=== PATIENT | male | born 1975 | race Caucasian/White ===

== ENCOUNTER → 2017-03-02 10:50 | Outpatient (CLI) | payer BC ==
[2016-04-28 14:48] VITALS: BMI 31.2
[~2017-03-02 10:50] MED LIST: PERCOCET 10/3251 TA1 PO
== END | disposition home or self-care (01) ==
LOC: D.OPS 10:50 → D.CT 13:00
DX: R19.00 Intra-abdominal and pelvic swelling, mass and lump, unspecified site (principal)

== ENCOUNTER 2017-12-30 11:49 | Inpatient (IN) | payer BC ==
[~2017-12-30] VITALS: Ht 182.9 cm; Wt 104.3 kg
--- NOTE | ~2017-12-30 | DS ---
PATIENT:NEENA COLLINS :71 MEDICAL RECORD: [id number] DISCHARGE SUMMARY ADMISSION DATE: 12/30/17 DISCHARGE DATE: 01/03/18 DATE OF ADMISSION: 12/30/2017 DATE OF DISCHARGE: 01/03/2018 ADMISSION DIAGNOSES: Abdominal pain, diverticulitis with microperforations. DISCHARGE DIAGNOSES: Abdominal pain, diverticulitis with microperforations. CONSULT: Elkin Hogan MD, general surgery. HOSPITAL COURSE: The patient was admitted to the Emergency Room with nausea, vomiting, diarrhea for several days, worse the prior night with a diffuse abdominal pain. CT of the abdomen and pelvis compatible with acute sigmoid diverticulitis with microperforations with recommendations for direct visualization with a colonoscopy after resolution of acute infection. The patient was started on IV Levaquin and Flagyl. Symptoms have completely resolved. He is anxious to go home. He is tolerating regular diet. PHYSICAL EXAMINATION: VITAL SIGNS ON DISCHARGE: Temperature 98.4, blood pressure is 132/79, heart rate is 62, respirations 15, O2 sats 96% room air. HEART: Regular rate and rhythm. LUNGS: Clear. ABDOMEN: Soft. Mild left lower quadrant tenderness. No rebound, no guarding, no palpable mass. EXTREMITIES: Present times 4. NEUROLOGIC: Intact. LABORATORY DATA: CBC on discharge; white count 7.7, hemoglobin 15.6, hematocrit 44 and platelets 199. DISPOSITION: The patient is discharged home in significantly improved condition. He will follow up in the clinic in 1 week. He will follow up with his in store banker. We will discuss further treatment plan at that time. MEDICATIONS: Per med rec. Please see chart for further details. TRANSINT:[id number] Voice Confirmation ID: [id number] DOCUMENT ID: [id number] ELKIN BOYER DO at 0818 CC: [id number] DICTATION DATE: 01/03/18 0816 PHONE REPRESENTATIVE: 01/03/18 1348 DIS IN 01/03/18 [place] 160970 [place] [id number]
[2017-12-30] MEDS ORDERED: PEPCID20 MG PO (11:59)
[2017-12-30 13:01] LABS: BASOPHILS 0.4 % (0-2); EOSINOPHILS 3.4 % (0-7); HEMATOCRIT 42.8 % (42.0-54.0); HEMOGLOBIN 15.4 g/dL (13.5-17.5); IMMATURE GRANULOCYTES 0.2 % (0-5); LYMPHOCYTES 23.3 % (15-50); MCH 31.4 pg (26.0-34.0); MCV 87.2 fL (80.0-100.0); MEAN PLATELET VOLUME 10.5 fL (7.4-10.4); MONOCYTES 8.1 % (2-11); NEUTROPHILS 64.6 % (40-80); PLATELET COUNT 165 10x3/uL (130-400); RBC 4.91 10x6/uL (4.20-6.10); RDW 12.9 % (11.5-14.5); WBC 11.2 10x3/uL (4.8-10.8)
[2017-12-30 13:21] LABS: ALBUMIN 3.5 g/dL (3.4-5.0); ALKALINE PHOSPHATASE 125 U/L (46-116); ALT (SGPT) 156 U/L (10-68); AMYLASE - SERUM 16 U/L (25-115); BILIRUBIN - TOTAL 1.67 mg/dL (0.2-1.3); CALC OSMOLALITY 272 mosm/kg (275-300); CALCIUM 9.3 mg/dL (8.5-10.1); CARBON DIOXIDE 26.8 mmol/L (21.0-32.0); CHLORIDE - SERUM 101 mmol/L (98-107); LIPASE 118 U/L (73-393); POTASSIUM - SERUM 3.9 mmol/L (3.5-5.1); PROTEIN - SERUM 7.8 g/dL (6.4-8.2); SODIUM 135 mmol/L (136-145); UREA NITROGEN 13 mg/dL (7-18); eGFR NON AFRICAN AMERICAN 86 mL/min (90-120)
[2017-12-30 13:22] LABS: GLUCOSE 148 mg/dL (74-106)
[2017-12-30 14:56] LABS: APPEARANCE CLEAR (CLEAR); BILIRUBIN NEGATIVE (NEGATIVE); COLOR AMBER (YELLOW); GLUCOSE NEGATIVE (NEGATIVE); KETONE NEGATIVE (NEGATIVE); NITRITE NEGATIVE (NEGATIVE); PROTEIN 1+ mg/dL (NEGATIVE); UROBILINOGEN NORMAL (NORMAL)
[2017-12-30 14:57] LABS: BACTERIA FEW /hpf (NONE SEEN); RED CELLS - URINE 0-5 /hpf (0-5); WHITE CELLS - URINE 0-5 /hpf (0-5)
[2017-12-30 14:58] LABS: MUCUS >1+ /lpf (NONE SEEN)
[2017-12-30 19:18] VITALS: BP 122/79
[2017-12-30] MEDS ORDERED: [UNRECOGNIZED DRUG - OTHER] (20:48)
[2017-12-30 23:16] VITALS: BP 139/75
[2017-12-31] VITALS (7 sets, daily range): BP systolic 105–151; BP diastolic 67–88; BMI 31.2
[2017-12-31 06:36] LABS: BASOPHILS 0.4 % (0-2); EOSINOPHILS 5.3 % (0-7); HEMATOCRIT 39.5 % (42.0-54.0); HEMOGLOBIN 13.7 g/dL (13.5-17.5); IMMATURE GRANULOCYTES 0.1 % (0-5); LYMPHOCYTES 25.5 % (15-50); MCH 30.7 pg (26.0-34.0); MCHC 34.7 g/dL (31.0-37.0); MCV 88.6 fL (80.0-100.0); MEAN PLATELET VOLUME 10.5 fL (7.4-10.4); MONOCYTES 6.8 % (2-11); NEUTROPHILS 61.9 % (40-80); PLATELET COUNT 150 10x3/uL (130-400); RBC 4.46 10x6/uL (4.20-6.10); RDW 13.1 % (11.5-14.5)
[2017-12-31 06:44] LABS: WBC 7.7 10x3/uL (4.8-10.8)
[2017-12-31 07:34] LABS: ALBUMIN 3.1 g/dL (3.4-5.0); ALKALINE PHOSPHATASE 90 U/L (46-116); BILIRUBIN - TOTAL 0.87 mg/dL (0.2-1.3); CALC OSMOLALITY 274 mosm/kg (275-300); CALCIUM 8.5 mg/dL (8.5-10.1); CARBON DIOXIDE 24.5 mmol/L (21.0-32.0); CHLORIDE - SERUM 103 mmol/L (98-107); CREATININE - SERUM 1.1 mg/dL (0.6-1.3); GLUCOSE 134 mg/dL (74-106); POTASSIUM - SERUM 4.1 mmol/L (3.5-5.1); SODIUM 136 mmol/L (136-145); UREA NITROGEN 14 mg/dL (7-18); eGFR NON AFRICAN AMERICAN 77 mL/min (90-120)
[2017-12-31 07:36] LABS: ALT (SGPT) 105 U/L (10-68)
[2018-01-01 04:32] LABS: BASOPHILS 0.5 % (0-2); EOSINOPHILS 4.9 % (0-7); HEMATOCRIT 37.9 % (42.0-54.0); HEMOGLOBIN 13.3 g/dL (13.5-17.5); IMMATURE GRANULOCYTES 0.2 % (0-5); LYMPHOCYTES 28.2 % (15-50); MCH 30.9 pg (26.0-34.0); MCHC 35.1 g/dL (31.0-37.0); MCV 88.1 fL (80.0-100.0); MEAN PLATELET VOLUME 10.6 fL (7.4-10.4); NEUTROPHILS 58.2 % (40-80); PLATELET COUNT 157 10x3/uL (130-400); RDW 12.9 % (11.5-14.5); WBC 6.1 10x3/uL (4.8-10.8)
[2018-01-01 05:20] LABS: ALKALINE PHOSPHATASE 105 U/L (46-116); ALT (SGPT) 89 U/L (10-68); BILIRUBIN - TOTAL 0.71 mg/dL (0.2-1.3); CALC OSMOLALITY 273 mosm/kg (275-300); CALCIUM 8.2 mg/dL (8.5-10.1); CARBON DIOXIDE 24.1 mmol/L (21.0-32.0); CHLORIDE - SERUM 103 mmol/L (98-107); GLUCOSE 120 mg/dL (74-106); PHOSPHOROUS 2.9 mg/dL (2.5-4.9); POTASSIUM - SERUM 3.9 mmol/L (3.5-5.1); PROTEIN - SERUM 6.8 g/dL (6.4-8.2); SODIUM 137 mmol/L (136-145); UREA NITROGEN 11 mg/dL (7-18); eGFR NON AFRICAN AMERICAN 86 mL/min (90-120)
[2018-01-01 06:10] VITALS: BP 137/83
[2018-01-01 07:46] VITALS: BP 124/79
[2018-01-01 12:45] VITALS: BP 146/82
[2018-01-01 16:29] VITALS: BP 135/70
[2018-01-01 20:03] VITALS: BP 163/96
[2018-01-02 04:00] VITALS: BP 131/67
[2018-01-02 05:09] LABS: BASOPHILS 0.3 % (0-2); EOSINOPHILS 4.9 % (0-7); HEMATOCRIT 39.9 % (42.0-54.0); HEMOGLOBIN 13.9 g/dL (13.5-17.5); IMMATURE GRANULOCYTES 0.2 % (0-5); LYMPHOCYTES 34.3 % (15-50); MCH 30.5 pg (26.0-34.0); MCHC 34.8 g/dL (31.0-37.0); MCV 87.7 fL (80.0-100.0); MEAN PLATELET VOLUME 10.4 fL (7.4-10.4); NEUTROPHILS 51.3 % (40-80); PLATELET COUNT 179 10x3/uL (130-400); RBC 4.55 10x6/uL (4.20-6.10); RDW 12.7 % (11.5-14.5)
[2018-01-02 05:27] LABS: ALBUMIN 3.2 g/dL (3.4-5.0); ALKALINE PHOSPHATASE 107 U/L (46-116); ALT (SGPT) 87 U/L (10-68); BILIRUBIN - TOTAL 0.47 mg/dL (0.2-1.3); CALC OSMOLALITY 274 mosm/kg (275-300); CALCIUM 8.3 mg/dL (8.5-10.1); CARBON DIOXIDE 24.9 mmol/L (21.0-32.0); CHLORIDE - SERUM 105 mmol/L (98-107); GLUCOSE 141 mg/dL (74-106); POTASSIUM - SERUM 3.9 mmol/L (3.5-5.1); PROTEIN - SERUM 6.7 g/dL (6.4-8.2); SODIUM 137 mmol/L (136-145); UREA NITROGEN 10 mg/dL (7-18); eGFR NON AFRICAN AMERICAN 86 mL/min (90-120)
[2018-01-02 08:29] VITALS: BP 138/77
[2018-01-02 09:57] VITALS: Ht 182.9 cm; Wt 104.3 kg
[2018-01-02 11:37] VITALS: BP 121/77
[2018-01-02 15:20] VITALS: BP 136/78
[2018-01-02 20:17] VITALS: BP 160/88
[2018-01-03 04:54] LABS: BASOPHILS 0.5 % (0-2); EOSINOPHILS 3.4 % (0-7); HEMOGLOBIN 15.6 g/dL (13.5-17.5); IMMATURE GRANULOCYTES 0.3 % (0-5); LYMPHOCYTES 32.3 % (15-50); MCH 31.1 pg (26.0-34.0); MCHC 35.5 g/dL (31.0-37.0); MCV 87.8 fL (80.0-100.0); MEAN PLATELET VOLUME 10.5 fL (7.4-10.4); MONOCYTES 6.8 % (2-11); NEUTROPHILS 56.7 % (40-80); PLATELET COUNT 199 10x3/uL (130-400); RBC 5.01 10x6/uL (4.20-6.10); RDW 12.9 % (11.5-14.5)
[2018-01-03 04:55] VITALS: BP 123/85
[2018-01-03 05:00] LABS: WBC 7.7 10x3/uL (4.8-10.8)
[2018-01-03 05:06] LABS: ALBUMIN 3.5 g/dL (3.4-5.0); ALKALINE PHOSPHATASE 125 U/L (46-116); BILIRUBIN - TOTAL 0.63 mg/dL (0.2-1.3); CALC OSMOLALITY 274 mosm/kg (275-300); CALCIUM 8.9 mg/dL (8.5-10.1); CARBON DIOXIDE 27.2 mmol/L (21.0-32.0); CHLORIDE - SERUM 101 mmol/L (98-107); CREATININE - SERUM 1.1 mg/dL (0.6-1.3); GLUCOSE 126 mg/dL (74-106); POTASSIUM - SERUM 3.7 mmol/L (3.5-5.1); PROTEIN - SERUM 7.4 g/dL (6.4-8.2); SODIUM 137 mmol/L (136-145); UREA NITROGEN 11 mg/dL (7-18); eGFR NON AFRICAN AMERICAN 77 mL/min (90-120)
[2018-01-03 05:10] LABS: ALT (SGPT) 136 U/L (10-68)
[2018-01-03 07:30] VITALS: BP 132/79
[2018-01-03] MEDS ORDERED: FLORASTOR250 MG PO (08:09)
[2018-01-03] MEDS ORDERED: FLAGYL500 MG PO (08:10)
[2018-01-03] MEDS ORDERED: LEVAQUIN750 MG PO (08:10)
== END 2018-01-03 16:02 | disposition home or self-care, planned readmission (81) | DRG 392 ==
LOC: D.ER 11:49 → D.M3 18:41 → D.EDHOLD 18:41 → D.M3 19:50
PROVIDERS: Family Medicine
DX: K57.10 Diverticulosis of small intestine without perforation or abscess without bleeding (principal); N39.0 Urinary tract infection, site not specified; R55 Syncope and collapse

== ENCOUNTER 2018-03-21 10:21 | Inpatient (IN) | payer BC ==
[2018-03-20 11:58] LABS: BASOPHILS 0.6 % (0-2); HEMATOCRIT 43.6 % (42.0-54.0); IMMATURE GRANULOCYTES 0.3 % (0-5); LYMPHOCYTES 34.3 % (15-50); MCH 31.9 pg (26.0-34.0); MCHC 36.7 g/dL (31.0-37.0); MCV 86.9 fL (80.0-100.0); MONOCYTES 7.6 % (2-11); NEUTROPHILS 52.2 % (40-80); PLATELET COUNT 188 10x3/uL (130-400); RBC 5.02 10x6/uL (4.20-6.10); RDW 12.9 % (11.5-14.5); WBC 7.2 10x3/uL (4.8-10.8)
[2018-03-20 12:09] LABS: CALC OSMOLALITY 275 mosm/kg (275-300); CALCIUM 9.5 mg/dL (8.5-10.1); CARBON DIOXIDE 23.7 mmol/L (21.0-32.0); CHLORIDE - SERUM 101 mmol/L (98-107); CREATININE - SERUM 1.1 mg/dL (0.6-1.3); GLUCOSE 134 mg/dL (74-106); SODIUM 137 mmol/L (136-145); UREA NITROGEN 13 mg/dL (7-18); eGFR NON AFRICAN AMERICAN 77 mL/min (90-120)
[~2018-03-21] VITALS: Ht 182.9 cm; Wt 84.1 kg
--- NOTE | ~2018-03-21 | MORECARE ---
CASE MANAGEMENT DISCHARGE SUMMARY PATIENT: NEENA COLLINS UNIT: [id number] ADM DATE: 03/21/18 AGE: 42 : [birth year] SEX: M ROOM/BED: D.2207 AUTHOR: JAIME ELLIOTT PHYSICIAN: REFERRING PHYSICIAN: BRENDEN MARSHALL MD DATE OF SERVICE: 03/25/18 Discharge Plan Patient Name: NEENA COLLINS Facility: [facility]:[place] : 1975 Planned Disposition: Home Anticipated Discharge Date: 03/25/18 Discharge Date: Expected LOS: 4 Initial Reviewer: [email or web address] Initial Review Date: 03/25/2018 Generated: 03/25/18 12:06 pm Comments DCP- Discharge Planning Updated by [email or web address]: Mya Hdz on 03/25/18 10:[address] Patient Name: NEENA COLLINS Admission Status: Elective Accout number: [id number] Admission Date: 03-21-2018 : 1975 Admission Diagnosis:DVTRCLI OF LG INT W/O PERFORATION OR ABSCESS W/O BLEEDI Attending: BRENDEN MARSHALL Current LOS: 4 Anticipated DC Date: 03-25-2018 Planned Disposition: Home Primary Insurance: [employer] BLUE PPO Discharge Planning Comments: CM MET WITH PATIENT REGARDING D/C NEEDS AND PLANS. PATIENT STATED HE LIVES WITH HIS (ZURI) AND THEIR CHILDREN. PATIENTS WILL DRIVE HIM HOME AT DISCHARGE. PATIENT IS SUPPOSE TO DISCHARGE TODAY. PATIENT STATED HE IS INDEPENDENT WITH HIS CARE AND HAS NO DME EQUIPMENT AT HOME. PATIENTS PCP IS DR. BOYER AND USES [facility] FOR HIS PHARMACY. PATIENT REFUSED HOME HEALTH. CM TOLD PATIENT IF THINGS CHANGE ONCE HOME AND HH NEEDED TO CALL HIS PCP. CM WILL CONTINUE TO FOLLOW PATIENT WITH D/C NEEDS AND PLANS. PCP [facility] [phone] Pants Maker: Mya Hdz DCP- Discharge Planning Updated by [email or web address]: Екатерина Solomon on 03/23/18 12:[address] PATIENT SLEEPING, WILL ASSESS AT A LATER TIME DCPIA - Discharge Planning Initial Assessment Updated by [email or web address]: Mya Hdz on 03/25/18 11:01 am * Is the patient Alert and Oriented? Yes * How many steps to enter\exit or inside your home? * PCP DR. BOYER * Pharmacy [facility] * Preadmission Environment Home with Family * ADLs Independent * Equipment None * List name and contact numbers for known caregivers / representatives who currently or will assist patient after discharge: ZURI (SPOUSE) [phone] * Verbal permission to speak to the caregivers and representatives has been obtained from the patient. Yes * Community resources currently utilized None * Additional services required to return to the preadmission environment? Yes * Can the patient safely return to the preadmission environment? Yes * Has this patient been hospitalized within the prior 30 days at any hospital? No Last DP export: 03/25/18 9:59 a Patient Name: NEENA COLLINS Page [id number] at 1106 All edits/amendments must be made on the electronic document DICTATION DATE: 03/25/181104 FORKLIFT MECHANIC: KAMALA 03/25/181104 RPT#: [id number] DC DATE: STATUS: ADM IN [facility] [address] [place] [address] END OF REPORT
--- NOTE | ~2018-03-21 | OP ---
PATIENT NAME: NEENA COLLINS MEDICAL RECORD: [id number] :71 LOCATION:D.MS Glez7 ADMISSION DATE:03/21/18 SURGEON: BRENDEN MARSHALL MD DATE OF OPERATION: 03/21/2018 PREOPERATIVE DIAGNOSIS: History of severe diverticulitis of the sigmoid colon with microperforation. POSTOPERATIVE DIAGNOSES: History of severe diverticulitis of the sigmoid colon with microperforation with extensive intra-abdominal adhesions in the pelvis. PROCEDURES: 1. Hand-assisted laparoscopic surgery - sigmoid colectomy with takedown of the splenic flexure. 2. Incidental appendectomy. SURGEON: Brenden Marshall MD PROGRAM ADMINISTRATOR: None. BLOOD LOSS: 100 cc. ANESTHESIA: General. COMPLICATIONS: None. The risks, possible complications, and alternatives to the procedures were explained to the patient. He elects to proceed. The discussion specifically included, but was not limited to, bleeding, requiring emergency reoperation; infection; colostomy formation; pelvic infection. OPERATIVE COURSE: The patient was conveyed to the operating room electively on 03/21/2018. General anesthesia was induced by the anesthesia staff. The abdomen was sterilely prepped and draped. A lower transverse incision was accomplished. Sharp dissection was carried down through skin and subcutaneous tissue as well as Rebecca's fascia. I incised the anterior fascia transversely. I the rectus abdominis muscles. I entered the peritoneal cavity sharply. An John retractor was placed. On top of the John retractor, a GelPort was placed. Through the Gelport, a 12-mm trocar was placed. Through the 12-mm trocar, I insufflated the abdomen. Under direct internal vision, utilizing television camera, a 5-mm trocar was inserted at the umbilicus. Another 5-mm trocar was inserted in the epigastrium and another 5-mm trocar was inserted far laterally in the left lower quadrant. During insertion of the trocars, there was no apparent injury to the bowels, any intraperitoneal or retroperitoneal structures. I began to incise along the left white line of Toldt. I entered the inner sigmoid fossa. Utilizing the laparoscopic EnSeal device and with my hand in the abdomen, I took down the splenic flexure of the colon. I then took the GelPort off of on top of the John retractor and desufflated the abdomen. OPERATIVE REPORT [id number] NEENA COLLINS I mobilized the appendix. The indication for the appendectomy is to avoid diagnostic confusion in the future should the patient have recurrence or persistence of abdominal pain. I stapled across the tip of the cecum with an Endo-ISIDRA type stapler utilizing a blue load. I then took down the mesoappendix with the laparoscopic EnSeal device. The appendix was sent as a single specimen. I then chose the distal extent of my resection to be what I thought was the junction of the sigmoid colon and the rectum. A window was created in the large bowel mesentery. I stapled across the large bowel twice with a TA-60 stapler and divided the large bowel between the melly. I then chose the proximal extent of my resection to be what I thought was the junction of the descending colon and the sigmoid colon. A window was created in the mesentery of the colon at this site and I stapled across it here with a TA-60 stapler. I took down the mesentery of the bowel with the laparoscopic EnSeal device. I felt the rectum and it felt thickened. Upon further mobilization and lysis of adhesions around the rectum, I noted that there was still a really inflamed portion of the large bowel and this appeared to be actually additional sigmoid colon. I was able to mobilize this. A window was created at the junction of the rectum and the sigmoid colon. I stapled across the bowel here with a TA-60 stapler and then took down the rest of the mesentery to the sigmoid colon with laparoscopic EnSeal device. I ran the small bowel. There appeared to have been no small bowel injury. I then excised the staple line from the descending colon. I advanced a 25 mm anvil and brought the anvil out through the antimesenteric border of the colon. I then stapled off the end of the colon with a TA-30 stapler. I then went below. I advanced EEA sizers. I then advanced the EEA stapling device. I deployed the arrow through the end of the staple line. I connected the anvil to the EEA stapler and tightened down on it and then fired. I then opened it up and removed the stapler. I then oversewed a portion of the staple line with multiple interrupted horizontal mattress 3-0 Vicryl sutures. We then instilled saline into the pelvis. We then tested the anastomosis pneumatically and there was no bubbling. I draped some omentum down over the anastomosis. I reperitonealized with running #1 Vicryls. The rectus muscles were approximated with horizontal mattress #1 Vicryls. The anterior fascia was closed with running #1 Vicryls from the left and from the right. Rebecca's fascia was approximated with interrupted 3-0 Vicryls. The subdermis was approximated with interrupted 3-0 Vicryls. The skin was approximated with a running intracuticular 3-0 Vicryl. At the trocar sites, the umbilical trocar site was closed with interrupted 3-0 Vicryl Rapide sutures. The other skin incisions were closed with interrupted intracuticular 3-0 Vicryls. Benzoin and Steri-Strips were applied. The patient was then extubated and conveyed to the postanesthesia care unit, where he was in stable condition. TRANSINT:[id number] Voice Confirmation ID: [id number] DOCUMENT ID: [id number] OPERATIVE REPORT [id number] NEENA COLLINS ROBERT MD at 1603 CC: BRENDEN BOYER and MAGGIE ROSS [id number] DICTATION DATE: 03/21/181834 LAST PUTTER AWAY: 03/21/181947 DIS IN 03/25/18 [place] [id number] [place] [address]
--- NOTE | ~2018-03-21 | MORECARE ---
CASE MANAGEMENT DISCHARGE SUMMARY PATIENT: NEENA COLLINS VICKIE UNIT: [id number] ADM DATE: 03/21/18 AGE: 42 : [birth year] SEX: M ROOM/BED: D.2207 AUTHOR: JAIME ELLIOTT PHYSICIAN: REFERRING PHYSICIAN: BRENDEN MARSHALL MD DATE OF SERVICE: 03/23/18 Discharge Plan Patient Name: NEENA COLLINS Facility: [facility]:[place] : 1975 Planned Disposition: Anticipated Discharge Date: Discharge Date: Expected LOS: Initial Reviewer: [email or web address] Initial Review Date: 03/21/2018 Generated: 03/23/18 1:10 pm Comments DCP- Discharge Planning Updated by [email or web address]: Екатерина Solomon on 03/23/18 11:[address] PATIENT SLEEPING, WILL ASSESS AT A LATER TIME Patient Name: NEENA COLLINS Page [phone] at 1210 All edits/amendments must be made on the electronic document DICTATION DATE: 03/23/18 1209 SQL SSRS DEVELOPER: KAMALA 03/23/18 1209 RPT#: [id number] DC DATE: STATUS: ADM IN [facility] [address] [place] [address] END OF REPORT
--- NOTE | ~2018-03-21 | MORECARE ---
CASE MANAGEMENT DISCHARGE SUMMARY PATIENT: NEENA COLLINS UNIT: [id number] ADM DATE: 03/21/18 AGE: 42 : 71 SEX: M ROOM/BED: D.2207 AUTHOR: JAIME ELLIOTT PHYSICIAN: REFERRING PHYSICIAN: BRENDEN MARSHALL MD DATE OF SERVICE: 03/27/18 Discharge Plan Patient Name: NEENA COLLINS Facility: [facility]:[place] : 1975 Planned Disposition: Home Anticipated Discharge Date: 03/25/18 Discharge Date: 03/25/2018 Expected LOS: 4 Initial Reviewer: [email or web address] Initial Review Date: 03/25/2018 Generated: 03/27/18 12:05 pm Comments DCP- Discharge Planning Updated by [email or web address]: Mya Hdz on 03/25/18 10:[address] Patient Name: NEENA COLLINS Admission Status: Elective Accout number: [id number] Admission Date: 03-21-2018 : 1975 Admission Diagnosis:DVTRCLI OF LG INT W/O PERFORATION OR ABSCESS W/O BLEEDI Attending: BRENDEN MARSHALL Current LOS: 4 Anticipated DC Date: 03-25-2018 Planned Disposition: Home Primary Insurance: [employer] BLUE PPO Discharge Planning Comments: CM MET WITH PATIENT REGARDING D/C NEEDS AND PLANS. PATIENT STATED HE LIVES WITH HIS (ZURI) AND THEIR CHILDREN. PATIENTS WILL DRIVE HIM HOME AT DISCHARGE. PATIENT IS SUPPOSE TO DISCHARGE TODAY. PATIENT STATED HE IS INDEPENDENT WITH HIS CARE AND HAS NO DME EQUIPMENT AT HOME. PATIENTS PCP IS DR. BOYER AND USES [facility] FOR HIS [facility]ACY. PATIENT REFUSED HOME HEALTH. CM TOLD PATIENT IF THINGS CHANGE ONCE HOME AND HH NEEDED TO CALL HIS PCP. CM WILL CONTINUE TO FOLLOW PATIENT WITH D/C NEEDS AND PLANS. PCP [facility] [phone] Lapping Machine Tender: Mya Hdz DCP- Discharge Planning Updated by [email or web address]: Екатерина Solomon on 03/23/18 12:[address] PATIENT SLEEPING, WILL ASSESS AT A LATER TIME DCPIA - Discharge Planning Initial Assessment Updated by [email or web address]: Mya Hdz on 03/25/18 11:01 am * Is the patient Alert and Oriented? Yes * How many steps to enter\exit or inside your home? * PCP DR. BOYER * Pharmacy [facility] * Preadmission Environment Home with Family * ADLs Independent * Equipment None * List name and contact numbers for known caregivers / representatives who currently or will assist patient after discharge: ZURI (SPOUSE) [phone] * Verbal permission to speak to the caregivers and representatives has been obtained from the patient. Yes * Community resources currently utilized None * Additional services required to return to the preadmission environment? Yes * Can the patient safely return to the preadmission environment? Yes * Has this patient been hospitalized within the prior 30 days at any hospital? No Last DP export: 03/25/18 10:06 a Patient Name: NEENA COLLINS Page 77799 at 1105 All edits/amendments must be made on the electronic document DICTATION DATE: 03/27/18 110 MOGUL OPERATOR: KAMALA 03/27/18 1104 RPT#: [id number] DC DATE:03/25/18 STATUS: DIS IN [facility] [address] [place] [address] END OF REPORT
--- NOTE | ~2018-03-21 | MORECARE ---
CASE MANAGEMENT DISCHARGE SUMMARY PATIENT: NEENA COLLINS VICKIE UNIT: [id number] ADM DATE: 03/21/18 AGE: 42 : 71 SEX: M ROOM/BED: D.2207 AUTHOR: JAIME ELLIOTT PHYSICIAN: REFERRING PHYSICIAN: BRENDEN MARSHALL MD DATE OF SERVICE: 03/25/18 Discharge Plan Patient Name: NEENA COLLINS [facility] [facility] 1975 Planned Disposition: Home Anticipated Discharge Date: 03/25/18 Discharge Date: Expected LOS: 4 Initial Reviewer: [email or web address] Initial Review Date: 03/25/2018 Generated: 03/25/18 11:59 am Comments DCP- Discharge Planning Updated by [id number]: Екатерина Solomon on 03/23/18 12:[address] PATIENT SLEEPING, WILL ASSESS AT A LATER TIME Last DP export: 03/23/18 12:10 p Patient Name: NEENA COLLINS Page [phone] at 1059 All edits/amendments must be made on the electronic document DICTATION DATE: 03/25/18 1059 CRESTER: KAMALA 03/25/18 1059 RPT#: [id number] DC DATE: STATUS: ADM IN [facility] [address] [place] [address] END OF REPORT
[~2018-03-21 10:21] MED LIST changes: +FLAGYL500 MG PO; +FLORASTOR250 MG PO; +LEVAQUIN750 MG PO; +PEPCID20 MG PO; +[UNRECOGNIZED DRUG - OTHER]
[2018-03-21 11:58] VITALS: BP 131/83; BMI 31.8
[2018-03-22 04:55] VITALS: BP 123/78; Ht 182.9 cm; Wt 84.1 kg
[2018-03-22 04:58] VITALS: BP 123/78
[2018-03-22 11:00] VITALS: BP 104/65
[2018-03-22 16:33] VITALS: BP 116/72
[2018-03-22 21:26] VITALS: BP 124/59
[2018-03-23 05:11] VITALS: BP 148/94
[2018-03-23 08:23] VITALS: BP 150/92
[2018-03-23 09:50] LABS: BASOPHILS 0.4 % (0-2); EOSINOPHILS 1.4 % (0-7); HEMOGLOBIN 12.6 g/dL (13.5-17.5); IMMATURE GRANULOCYTES 0.2 % (0-5); LYMPHOCYTES 16.3 % (15-50); MCH 31.4 pg (26.0-34.0); MCV 89.8 fL (80.0-100.0); MEAN PLATELET VOLUME 9.8 fL (7.4-10.4); NEUTROPHILS 75.7 % (40-80); RBC 4.01 10x6/uL (4.20-6.10); RDW 13.1 % (11.5-14.5); WBC 8.6 10x3/uL (4.8-10.8)
[2018-03-23 09:51] LABS: PLATELET COUNT 133 10x3/uL (130-400)
[2018-03-23 10:01] LABS: CALC OSMOLALITY 273 mosm/kg (275-300); CALCIUM 8.1 mg/dL (8.5-10.1); CHLORIDE - SERUM 101 mmol/L (98-107); CREATININE - SERUM 0.9 mg/dL (0.6-1.3); POTASSIUM - SERUM 3.7 mmol/L (3.5-5.1); SODIUM 134 mmol/L (136-145); UREA NITROGEN 10 mg/dL (7-18); eGFR NON AFRICAN AMERICAN > 90 mL/min (90-120)
[2018-03-23 10:06] LABS: GLUCOSE 219 mg/dL (74-106)
[2018-03-23 16:23] VITALS: BP 135/93
[2018-03-23 21:18] VITALS: BP 122/86
[2018-03-24 04:29] VITALS: BP 127/76
[2018-03-24 09:17] VITALS: BP 122/79
[2018-03-24 12:43] VITALS: BP 129/78
[2018-03-24 17:00] VITALS: BP 148/97
[2018-03-25 00:44] VITALS: BP 138/81
[2018-03-25 04:00] VITALS: BP 113/80
[2018-03-25 08:17] VITALS: BP 125/88
[2018-03-25] MEDS ORDERED: HYDROCODON-ACE1 EAC7 PO (11:15)
[2018-03-25 11:56] VITALS: BP 139/88
== END 2018-03-25 13:00 | disposition home or self-care (01) | DRG 331 ==
LOC: D.MS 10:21 → D.SDCHOLD 10:21 → D.MS 19:13
PROVIDERS: Anesthesiology; Surgery
PROC: 0DTJ0ZZ Resection of Appendix, Open Approach (ICD-10-PCS; 2018-03-21)
PROC: 0DTN0ZZ Resection of Sigmoid Colon, Open Approach (ICD-10-PCS; principal; 2018-03-21 12:30)
PROC: 0DNW0ZZ Release Peritoneum, Open Approach (ICD-10-PCS; 2018-03-21 12:30)
DX: K57.32 Diverticulitis of large intestine without perforation or abscess without bleeding (principal); K66.0 Peritoneal adhesions (postprocedural) (postinfection)

== ENCOUNTER → 2018-03-28 11:16 | Outpatient (CLI) | payer BC ==
[2018-03-22 04:55] VITALS: BMI 25.1
[~2018-03-28 11:16] MED LIST changes: +DIFICID 200 MG PO; +HYDROCODON-ACE1 EAC7 PO; +KENALOG 0.1 % 115 GM TOPICAL; +MEDROL DOSE PACK4 MG PO
== END | disposition home or self-care (01) ==
LOC: D.LABREF 11:16
DX: R19.7 Diarrhea, unspecified (principal)

== ENCOUNTER 2018-04-05 04:47 | Observation (INO) | payer BC ==
[~2018-04-05] VITALS: Ht 182.9 cm; Wt 98.1 kg
--- NOTE | ~2018-04-05 | MORECARE ---
CASE MANAGEMENT DISCHARGE SUMMARY PATIENT: NEENA COLLINS UNIT: [id number] ADM DATE: 04/05/18 AGE: 42 : 71 SEX: M ROOM/BED: D.4670 AUTHOR: EARLDOC PHYSICIAN: REFERRING PHYSICIAN: BRENDEN BOYER DO DATE OF SERVICE: 04/06/18 Discharge Plan Patient Name: NEENA COLLINS Facility: [facility]:[place] : 1975 Planned Disposition: Anticipated Discharge Date: Discharge Date: Expected LOS: Initial Reviewer: [email or web address] Initial Review Date: 04/05/2018 Generated: 04/06/18 2:00 pm Comments DCP- Discharge Planning Updated by [email or web address]: Nika Cohen on 04/06/18 11:[address] HAVE RECEIVED ORDER TO CALL IN THE PRESCRIPTION FOR THE PATIENT. IT WAS CALLED INTO TO [facility] [address]. I HAVE RELAYED THE INSURANCE INFORMATION FROM HIS PRESCRIPTION CARD. EVERYTHING HAS BEEN EXPLAINED TO THE PATIENT, AND THE PATIENT HAS STATED HIS GRATITUDE. I HAVE NOT BEEN ABLE TO PRINT THE PRESCRIPTION CARD MYSELF SECONDARY TO IT SAYING I'M ALREADY REGISTERED AND I DON'T KNOW THE USER NAME OR PASSWORD, BUT I WILL WORK ON IT. Appended by Nika Cohen on 04/06/2018 12:57 SENIOR INTERNAL AUDITOR: FOR RECORD: RX CARD IS WITH [facility]: ID# [id number], GROUP # [id number], BIN# [id number]. DCP- Discharge Planning Updated by [id number]: Nika Cohen on 04/06/18 11:[address] I HAVE BEEN ABLE TO FINALLY PRINT A DISCOUNT CARD FROM THE [employer]. THIS HAS BEEN GIVEN TO THE PATIENT AND A COPY WAS PLACED IN THE CHART. DCP- Discharge Planning Updated by [email or web address]: Nika Cohen on 04/06/18 9:[address] I SPOKE WITH DR KAYE ABOUT SEEING IF THE PATIENTS INSURANCE WOULD COVER DIFCID (FIDAXOMICIN) 200 MG PO BID X 10 DAYS. AND WHAT THE PATIENT COST WOULD BE. [phone]. I INITIALLY SPOKE WITH CORTEZ WHO TRANSFERRED ME TO JOSÉ MANUEL BECAUSE SHE WAS NOT SURE WHAT THE ANSER WAS. JOSÉ MANUEL STATED THAT THE PATIENTS PLAN REQUIRES HIM TO GET HIS MEDICATION AT [facility], AND THAT THE ANTIBIOTIC WAS NOT ON THEIR FORMULARY AND DUE TO THE COST THEY WERE SURE THEY COULD NOT OBTAIN IT FROM AN OUTSIDE COMPANY. I WAS PLACED ON HOLD AND WHEN SHE CAME BACK, SHE STATED I NEEDED TO CALL [phone] TO SEE ABOUT OUTSIDE AUTH. I CALLED [phone] AND SPOKE WITH DUC. AFTER EXPLAINING THE NATURE OF THE CALL WITH HER, SHE PLACED ME ON HOLD AND CAME BACK TO EXPLAIN THAT THE PATIENT IS A LIMITED ACCESS PLAN PATIENT AND I WOULD NEED TO CALL LIMITED ACCESS AT [phone] SINCE SHE CANNOT PULL LIMITED ACCESS PATIENTS UP IN THE COMPUTER. CALL PLACED TO [phone], SPOKE WTIH MRS ARYAN SCHOFIELD, AND SHE IS FOR ADJUSTMENTS AND I WOULD NEED TO CALL AND SPEAK TO SOMEONE AT [phone]. I PLACED A CALL TO THIS NUMBER AND SPOKE WITH FATOUMATA. AFTER EXPLAINING EVERYTHING TO HER, SHE EXPLAINED THAT SHE IS JUST THE PRICING DEPARTMENT AND I WOULD NEED TO SPEAK TO SOMEONE AT THE [facility]. SHE GAVE ME THE NUMBER OF [phone]. I CALLED THIS NUMBER AND SPOKE WITH BUSHRA. SHE EXPLAINED THAT SINCE WE ARE ASKING ABOUT A MEDICATION THAT [facility], I WOULD HAVE TO TALK TO SOMEONE AT [facility], AND GAVE ME THE NUMBER [phone]. I CALLED AND SPOKE WITH WILMER. AFTER EXPLAINING EVERYTHING AGAIN, HE STATED THE MEDICATION WAS NOT IN THEIR SYSTEM AND IF HE CANNOT PULL THE MEDICATION UP IN THIER SYSTEM, THEY WILL NOT SUPPLY IT. HE ENCOURAGED ME TO LOOK FOR A [employer] THAT SUPPLIES THE MEDICATION AND SEE ABOUT GETTING A DISCOUNT OR ASSISTANCE PROGRAM APPLICATION FROM THEM. I THANKED HIM FOR HIS TIME. @3066 I PLACED A PAGED TO DR CHERRY AT [phone] TO EXPLAIN WHAT WAS DISCOVERED. @5232 CALL WAS TRANSFERRED TO MY PHONE FROM ARLENE AT DR CHERRY'S OFFICE. EXPLAINED THE FINDINGS TO HER AND SHE STATED THAT SHE MAY HAVE SOMEONE THAT CAN HELP SUPPLY THE MEDICATION AND HAS REQUESTED THAT I CALL HER BEFORE I LEAVE. I HAVE MADE MYSELF A REMINDER NOTE, AND WILL CALL HER IN A BIT. DCP- Discharge Planning Updated by [email or web address]: Nika Cohen on 04/06/18 9:[address] I CALLED [facility] AT [phone] AND THEY DO NOT CARRY THE MEDICATION. I THEN CALLED [facility] AT [phone] AND SPOKE WITH ARSH. SHE HAD TO PLACE ME ON HOLD AND TALK TO THE PHARMACIST SECONDARY TO THE MESSAGE IN THE SYSTEM WHEN SHE LOOKED UP THE MEDICATION. SHE CAME BACK AND SAID THAT THEY HAD 10 OF THE 200 MG TABS, SHE ASKED HOW MANY TABS THE PATIENT WOULD NEED. EXPLAINED 20. SHE STATED THAT IF THEY HAVE THE ORDER IN BY 1330 IT CAN BE HERE ON MONDAY. SHE SAID THEY COULD DISPENSE THE 10 TODAY AND THE OTHER 10 WHEN IT COMES IN. I EXPLAINED THE INSURANCE SITUTATION TO HER. SHE STATED THAT IT WOULD BE NO PROBLEM, I GAVE HER THE [facility] NUMBER AND NAME OF PERSON I TALKED TO. I EXPLAINED THAT I NEEDED TO GET AHOLD OF DR CHERRY TO ACTUALLY RECEIVE THE ORDER TO CALL THE MEDICATION IN, THAT RIGHT NOW I JUST HAVE THE REQUEST TO FIND A PLACE THAT CARRIES THE MED AND MAKE SURE THE INSURANCE WOULD COVER AND THE PATIENT COULD AFFORD THE COST. SHE SAID OK. I HAVE LEFT A MESSAGE FOR ARLENE AT DR CHERRY'S OFFICE AND WILL WAIT FOR RETURN CALL. DCP- Discharge Planning Updated by [email or web address]: Nika Cohen on 04/06/18 9:[address] I STARTED CALLING THE PATIENTS INSURANCE COMPANY TODAY. I FINALLY GOT CONNECTED WITH A CAREER EDUCATION TEACHER NAMED VIKY AT [facility] [phone] WHO SPOKE WITH HER CAREER EDUCATION TEACHER IN REGARDS TO THE PATIENTS NEEDS. I HAVE BEEN TOLD TO HAVE A PHARMACY THAT CARRIES THE MEDICATION RUN IT THROUGH AND ONCE IT HAS BEEN DENIED, SHE WILL OVERRIDE IT IN THE SYSTEM AND THEY WILL PAY 1/3 THE COST OF THE MEDICATION. SHE STATED THAT THE PATIENT IS STILL GOING TO NEED THE [employer] DISCOUNT CARD TO FINANCIALLY ASSIST WITH IT. SHE STATED THAT HER CAREER EDUCATION TEACHER IS WATCHING FOR THE DENIAL AND WILL OVERRIDE IT SOON IT IS SEEN, BUT I CAN CALL BACK AND LET HER KNOW ONCE THE INITIAL DENIAL OF THE MEDICATION HAPPENED SO THAT THIS COULD BE DONE. SHE STATED THAT HER CAREER EDUCATION TEACHER WILL LEAVE AT 1400 TO DAY AND THEREFORE WOULD NEED TO BE DONE BY THEN. I HAVE LEFT A MESSAGE FOR ARLENE, WITH DR KAYE IN REGARDS TO THIS. I WENT IN AND EXPLAINED IT TO THE PATIENT WHO IS THANKFUL THAT WE HAVE FIGURED IT OUT AND IS WILLING TO GO TO WHATEVER PHARMACY WE CAN FIND THE MEDICATION AT AND SAID THAT HE HAS NO PROBLEM PAYING THE $50.00 THAT WAS TOLD TO ME BY ARLENE YESTERDAY. I WILL WORK ON FINDING A PHARMACY THAT CARRIES THE MEDICATION. Last DP export: 04/06/18 10:27 Patient Name: NEENA COLLINS Page [phone] at 1300 All edits/amendments must be made on the electronic document DICTATION DATE: 04/06/18 1300 GREEN CHAIN OPERATOR: KAMALA 04/06/18 1300 RPT#: [id number] DC DATE: STATUS: ADM IN [facility] [address] [place] [address] END OF REPORT
--- NOTE | ~2018-04-05 | HP ---
PATIENT: NEENA COLLINS MEDICAL RECORD: [id number] ACCOUNT: [id number] LOCATION:[facility] D.2111 : 71 ADMISSION DATE: 04/05/18 PCP: No PCP HISTORY AND PHYSICAL EXAMINATION HISTORY OF PRESENT ILLNESS: A 42-year-old male. The patient presents to the Emergency Room with reported allergic reaction of oral vancomycin, which he had been started on several days for resistant C. diff, reported hives, swollen lips. The patient is status post sigmoid colectomy in end of February for perforated diverticulitis with microperforation. He had been on antibiotics for an extended period of time with that. He was originally placed on metronidazole, symptoms persisted. He was changed to vancomycin by his surgeon, presents today with the reaction. REVIEW OF SYSTEMS: GENERAL: Weight loss with the surgery and the C. diff. Denies nausea or vomiting. HEENT: No cephalgia, visual changes, tinnitus, epistaxis, or dysphagia. Initial swollen lip improved after Benadryl. PULMONARY: Denies hemoptysis, denies night sweats, denies shortness of breath. GASTROINTESTINAL: History as above. Diarrhea has significantly improved. GENITOURINARY: The patient denies dysuria. MUSCULOSKELETAL: No acute changes. ENDOCRINE: Denies polyuria, polydipsia, or polyphagia. PHYSICAL EXAMINATION: VITAL SIGNS: Temp 97.9, blood pressure is 131/88, heart rate 86, respirations 20, O2 sats 95% room air. GENERAL: Alert and oriented, no present distress. HEENT: Normocephalic, atraumatic. Eyes: Pupils are equally round and reactive to light and accommodation. Extraocular muscles intact. Conjunctivae is not injected. Ears: Canals patent, TMs are intact. Nose: Nares patent without drainage. Throat: No erythema, no exudates. NECK: Supple. No lymphadenopathy, no JVD. HEART: Regular rate and rhythm. No S3, S4, no rub. LUNGS: Clear to auscultation bilaterally. Breathing is nonlabored. ABDOMEN: Soft, nontender. Normal bowel sounds. Surgical scar is well-healed. EXTREMITIES: Present times 4. NEUROLOGIC: Intact. SKIN: Warm and dry. No rash. ASSESSMENT AND PLAN: 1. Allergic reaction to vancomycin, symptoms improving. 2. Resistant Clostridium difficile. The patient is presently asymptomatic. We will repeat stool for Clostridium difficile. We will consult infectious disease prior to starting any additional antibiotics as symptoms have significantly improved or resolved. We will monitor the patient. Clear liquid diet, supportive care. TRANSINT:[id number] Voice Confirmation ID: [id number] DOCUMENT ID: [id number] HISTORY AND PHYSICAL [id number] NEENA COLLINS ROBERT DO at 0800 CC: [id number] DICTATION DATE: 04/05/18817 DESK TOP PUBLISHER: 04/05/18 0847 DIS IN 04/06/18 [id number] [place] [address]
--- NOTE | ~2018-04-05 | MORECARE ---
CASE MANAGEMENT DISCHARGE SUMMARY PATIENT: NEENA COLLINS UNIT: [id number] ADM DATE: 04/05/18 AGE: 42 : 73 SEX: M ROOM/BED: D.2112 AUTHOR: EARL,DOC PHYSICIAN: REFERRING PHYSICIAN: BRENDEN BOYER DO DATE OF SERVICE: 04/06/18 Discharge Plan Patient Name: NEENA COLLINS Facility: [facility]:[place] : 1975 Planned Disposition: Anticipated Discharge Date: Discharge Date: Expected LOS: Initial Reviewer: [email or web address] Initial Review Date: 04/05/2018 Generated: 04/06/18 12:27 pm Comments DCP- Discharge Planning Updated by [id number]: Nika Cohen on 04/06/18 10:[address] HAVE RECEIVED ORDER TO CALL IN THE PRESCRIPTION FOR THE PATIENT. IT WAS CALLED INTO TO [facility] [address]. I HAVE RELAYED THE INSURANCE INFORMATION FROM HIS PRESCRIPTION CARD. EVERYTHING HAS BEEN EXPLAINED TO THE PATIENT, AND THE PATIENT HAS STATED HIS GRATITUDE. I HAVE NOT BEEN ABLE TO PRINT THE PRESCRIPTION CARD MYSELF SECONDARY TO IT SAYING I'M ALREADY REGISTERED AND I DON'T KNOW THE USER NAME OR PASSWORD, BUT I WILL WORK ON IT. DCP- Discharge Planning Updated by [email or web address]: Nika Cohen on 04/06/18 9:[address] I SPOKE WITH DR KAYE ABOUT SEEING IF THE PATIENTS INSURANCE WOULD COVER DIFCID (FIDAXOMICIN) 200 MG PO BID X 10 DAYS. AND WHAT THE PATIENT COST WOULD BE. I STARTED BY CALLING [employer] AT [phone]. I INITIALLY SPOKE WITH CORTEZ WHO TRANSFERRED ME TO JOSÉ MANUEL BECAUSE SHE WAS NOT SURE WHAT THE ANSER WAS. JOSÉ MANUEL STATED THAT THE PATIENTS PLAN REQUIRES HIM TO GET HIS MEDICATION AT [employer], AND THAT THE ANTIBIOTIC WAS NOT ON THEIR FORMULARY AND DUE TO THE COST THEY WERE SURE THEY COULD NOT OBTAIN IT FROM AN OUTSIDE COMPANY. I WAS PLACED ON HOLD AND WHEN SHE CAME BACK, SHE STATED I NEEDED TO CALL [phone] TO SEE ABOUT OUTSIDE AUTH. I CALLED [phone] AND SPOKE WITH DUC. AFTER EXPLAINING THE NATURE OF THE CALL WITH HER, SHE PLACED ME ON HOLD AND CAME BACK TO EXPLAIN THAT THE PATIENT IS A LIMITED ACCESS PLAN PATIENT AND I WOULD NEED TO CALL LIMITED ACCESS AT [phone] SINCE SHE CANNOT PULL LIMITED ACCESS PATIENTS UP IN THE COMPUTER. CALL PLACED TO [phone], SPOKE WTIH MRS ARYAN SCHOFIELD, AND SHE IS FOR ADJUSTMENTS AND I WOULD NEED TO CALL AND SPEAK TO SOMEONE AT [phone]. I PLACED A CALL TO THIS NUMBER AND SPOKE WITH FATOUMATA. AFTER EXPLAINING EVERYTHING TO HER, SHE EXPLAINED THAT SHE IS JUST THE PRICING DEPARTMENT AND I WOULD NEED TO SPEAK TO SOMEONE AT THE [facility]. SHE GAVE ME THE NUMBER OF [phone]. I CALLED THIS NUMBER AND SPOKE WITH BUSHRA. SHE EXPLAINED THAT SINCE WE ARE ASKING ABOUT A MEDICATION THAT [facility] DOES NOT SUPPLY IN [facility] FOR[facility], I WOULD HAVE TO TALK TO SOMEONE AT [facility], THE [facility], AND GAVE ME THE NUMBER [phone]. I CALLED AND SPOKE WITH WILMER. AFTER EXPLAINING EVERYTHING AGAIN, HE STATED THE MEDICATION WAS NOT IN THEIR SYSTEM AND IF HE CANNOT PULL THE MEDICATION UP IN THIER SYSTEM, THEY WILL NOT SUPPLY IT. HE ENCOURAGED ME TO LOOK FOR A PERSONAL ASSISTANT THAT SUPPLIES THE MEDICATION AND SEE ABOUT GETTING A DISCOUNT OR ASSISTANCE PROGRAM APPLICATION FROM THEM. I THANKED HIM FOR HIS TIME. @5538 I PLACED A PAGED TO DR CHERRY AT [phone] TO EXPLAIN WHAT WAS DISCOVERED. @3541 CALL WAS TRANSFERRED TO MY PHONE FROM ARLENE AT DR CHERRY'S OFFICE. EXPLAINED THE FINDINGS TO HER AND SHE STATED THAT SHE MAY HAVE SOMEONE THAT CAN HELP SUPPLY THE MEDICATION AND HAS REQUESTED THAT I CALL HER BEFORE I LEAVE. I HAVE MADE MYSELF A REMINDER NOTE, AND WILL CALL HER IN A BIT. DCP- Discharge Planning Updated by [id number]: Nika Cohen on 04/06/18 9:[address] I CALLED [facility] AT [phone] AND THEY DO NOT CARRY THE MEDICATION. I THEN CALLED YASHIRA AT [phone] AND SPOKE WITH ARSH. SHE HAD TO PLACE ME ON HOLD AND TALK TO THE PHARMACIST SECONDARY TO THE MESSAGE IN THE SYSTEM WHEN SHE LOOKED UP THE MEDICATION. SHE CAME BACK AND SAID THAT THEY HAD 10 OF THE 200 MG TABS, SHE ASKED HOW MANY TABS THE PATIENT WOULD NEED. EXPLAINED 20. SHE STATED THAT IF THEY HAVE THE ORDER IN BY 1330 IT CAN BE HERE ON MONDAY. SHE SAID THEY COULD DISPENSE THE 10 TODAY AND THE OTHER 10 WHEN IT COMES IN. I EXPLAINED THE INSURANCE SITUTATION TO HER. SHE STATED THAT IT WOULD BE NO PROBLEM, I GAVE HER THE [facility] NUMBER AND NAME OF PERSON I TALKED TO. I EXPLAINED THAT I NEEDED TO GET AHOLD OF DR CHERRY TO ACTUALLY RECEIVE THE ORDER TO CALL THE MEDICATION IN, THAT RIGHT NOW I JUST HAVE THE REQUEST TO FIND A PLACE THAT CARRIES THE MED AND MAKE SURE THE INSURANCE WOULD COVER AND THE PATIENT COULD AFFORD THE COST. SHE SAID OK. I HAVE LEFT A MESSAGE FOR ARLENE AT DR CHERRY'S OFFICE AND WILL WAIT FOR RETURN CALL. DCP- Discharge Planning Updated by [id number]: Nika Cohen on 04/06/18 9:[address] I STARTED CALLING THE PATIENTS INSURANCE COMPANY TODAY. I FINALLY GOT CONNECTED WITH A COMMUNITY ADMINISTRATOR NAMED VIKY AT [facility] [phone] WHO SPOKE WITH HER COMMUNITY ADMINISTRATOR IN REGARDS TO THE PATIENTS NEEDS. I HAVE BEEN TOLD TO HAVE A PHARMACY THAT CARRIES THE MEDICATION RUN IT THROUGH AND ONCE IT HAS BEEN DENIED, SHE WILL OVERRIDE IT IN THE SYSTEM AND THEY WILL PAY 1/3 THE COST OF THE MEDICATION. SHE STATED THAT THE PATIENT IS STILL GOING TO NEED THE [employer] DISCOUNT CARD TO FINANCIALLY ASSIST WITH IT. SHE STATED THAT HER COMMUNITY ADMINISTRATOR IS WATCHING FOR THE DENIAL AND WILL OVERRIDE IT SOON IT IS SEEN, BUT I CAN CALL BACK AND LET HER KNOW ONCE THE INITIAL DENIAL OF THE MEDICATION HAPPENED SO THAT THIS COULD BE DONE. SHE STATED THAT HER COMMUNITY ADMINISTRATOR WILL LEAVE AT 1400 TO DAY AND THEREFORE WOULD NEED TO BE DONE BY THEN. I HAVE LEFT A MESSAGE FOR ARLENE, WITH DR KAYE IN REGARDS TO THIS. I WENT IN AND EXPLAINED IT TO THE PATIENT WHO IS THANKFUL THAT WE HAVE FIGURED IT OUT AND IS WILLING TO GO TO WHATEVER PHARMACY WE CAN FIND THE MEDICATION AT AND SAID THAT HE HAS NO PROBLEM PAYING THE $50.00 THAT WAS TOLD TO ME BY ARLENE YESTERDAY. I WILL WORK ON FINDING A PHARMACY THAT CARRIES THE MEDICATION. Last DP export: 04/06/18 9:35 Patient Name: NEENA COLLINS Page [phone] at 1127 All edits/amendments must be made on the electronic document DICTATION DATE: 04/06/181125 COURIER: KAMALA 04/06/181125 RPT#: [id number] DC DATE: STATUS: ADM IN [facility] [address] [place] [address] END OF REPORT
--- NOTE | ~2018-04-05 | MORECARE ---
CASE MANAGEMENT DISCHARGE SUMMARY PATIENT: NEENA COLLINS UNIT: [id number] ADM DATE: 04/05/18 AGE: 42 : 71 SEX: M ROOM/BED: D.2112 AUTHOR: EARL,DOC PHYSICIAN: REFERRING PHYSICIAN: BRENDEN BOYER DO DATE OF SERVICE: 04/06/18 Discharge Plan Patient Name: NEENA COLLINS Facility: [facility]:[place] : 1975 Planned Disposition: Anticipated Discharge Date: Discharge Date: Expected LOS: Initial Reviewer: [id number] Initial Review Date: 04/05/2018 Generated: 04/06/18 11:35 am Comments DCP- Discharge Planning Updated by [id number]: Nika Cohen on 04/06/18 9:[address] I SPOKE WITH DR KAYE ABOUT SEEING IF THE PATIENTS INSURANCE WOULD COVER DIFCID (FIDAXOMICIN) 200 MG PO BID X 10 DAYS. AND WHAT THE PATIENT COST WOULD BE. I [facility]ED [facility] [phone]. I INITIALLY SPOKE WITH CORTEZ WHO TRANSFERRED ME TO JOSÉ MANUEL BECAUSE SHE WAS NOT SURE WHAT THE ANSER WAS. JOSÉ MANUEL STATED THAT THE PATIENTS PLAN REQUIRES HIM TO GET HIS MEDICATION AT [facility], AND THAT THE ANTIBIOTIC WAS NOT ON THEIR FORMULARY AND DUE TO THE COST THEY WERE SURE THEY COULD NOT OBTAIN IT FROM AN OUTSIDE COMPANY. I WAS PLACED ON HOLD AND WHEN SHE CAME BACK, SHE STATED I NEEDED TO CALL [phone] TO SEE ABOUT OUTSIDE AUTH. I CALLED [phone] AND SPOKE WITH DUC. AFTER EXPLAINING THE NATURE OF THE CALL WITH HER, SHE PLACED ME ON HOLD AND CAME BACK TO EXPLAIN THAT THE PATIENT IS A LIMITED ACCESS PLAN PATIENT AND I WOULD NEED TO CALL LIMITED ACCESS AT [phone] SINCE SHE CANNOT PULL LIMITED ACCESS PATIENTS UP IN THE COMPUTER. CALL PLACED TO [phone], SPOKE WTIH MRS ARYAN SCHOFIELD, AND SHE IS FOR ADJUSTMENTS AND I WOULD NEED TO CALL AND SPEAK TO SOMEONE AT [phone]. I PLACED A CALL TO THIS NUMBER AND SPOKE WITH FATOUMATA. AFTER EXPLAINING EVERYTHING TO HER, SHE EXPLAINED THAT SHE IS JUST THE PRICING DEPARTMENT AND I WOULD NEED TO SPEAK TO SOMEONE AT THE [facility]. SHE GAVE ME THE NUMBER OF [phone]. I CALLED THIS NUMBER AND SPOKE WITH BUSHRA. SHE EXPLAINED THAT SINCE WE ARE ASKING ABOUT A MEDICATION THAT [facility] DOES NOT SUPPLY IN [facility], I WOULD HAVE TO TALK TO SOMEONE AT [facility], THE [facility], AND GAVE ME THE NUMBER [phone]. I CALLED AND SPOKE WITH WILMER. AFTER EXPLAINING EVERYTHING AGAIN, HE STATED THE MEDICATION WAS NOT IN THEIR SYSTEM AND IF HE CANNOT PULL THE MEDICATION UP IN THIER SYSTEM, THEY WILL NOT SUPPLY IT. HE ENCOURAGED ME TO LOOK FOR A COLLAR CLOSER LOCKSTITCH THAT SUPPLIES THE MEDICATION AND SEE ABOUT GETTING A DISCOUNT OR ASSISTANCE PROGRAM APPLICATION FROM THEM. I THANKED HIM FOR HIS TIME. @1035 I PLACED A PAGED TO DR CHERRY AT [phone] TO EXPLAIN WHAT WAS DISCOVERED. @9848 CALL WAS TRANSFERRED TO MY PHONE FROM ARLENE AT DR CHERRY'S OFFICE. EXPLAINED THE FINDINGS TO HER AND SHE STATED THAT SHE MAY HAVE SOMEONE THAT CAN HELP SUPPLY THE MEDICATION AND HAS REQUESTED THAT I CALL HER BEFORE I LEAVE. I HAVE MADE MYSELF A REMINDER NOTE, AND WILL CALL HER IN A BIT. DCP- Discharge Planning Updated by [id number]: Nika Cohen on 04/06/18 9:[address] I CALLED [facility] AT [phone] AND THEY DO NOT CARRY THE MEDICATION. I THEN CALLED YASHIRA AT [phone] AND SPOKE WITH ARSH. SHE HAD TO PLACE ME ON HOLD AND TALK TO THE PHARMACIST SECONDARY TO THE MESSAGE IN THE SYSTEM WHEN SHE LOOKED UP THE MEDICATION. SHE CAME BACK AND SAID THAT THEY HAD 10 OF THE 200 MG TABS, SHE ASKED HOW MANY TABS THE PATIENT WOULD NEED. EXPLAINED 20. SHE STATED THAT IF THEY HAVE THE ORDER IN BY 1330 IT CAN BE HERE ON MONDAY. SHE SAID THEY COULD DISPENSE THE 10 TODAY AND THE OTHER 10 WHEN IT COMES IN. I EXPLAINED THE INSURANCE SITUTATION TO HER. SHE STATED THAT IT WOULD BE NO PROBLEM, I GAVE HER THE [facility] NUMBER AND NAME OF PERSON I TALKED TO. I EXPLAINED THAT I NEEDED TO GET AHOLD OF DR CHERRY TO ACTUALLY RECEIVE THE ORDER TO CALL THE MEDICATION IN, THAT RIGHT NOW I JUST HAVE THE REQUEST TO FIND A PLACE THAT CARRIES THE MED AND MAKE SURE THE INSURANCE WOULD COVER AND THE PATIENT COULD AFFORD THE COST. SHE SAID OK. I HAVE LEFT A MESSAGE FOR ARLENE AT DR CHERRY'S OFFICE AND WILL WAIT FOR RETURN CALL. DCP- Discharge Planning Updated by [id number]: Nika Cohen on 04/06/18 9:[address] I STARTED CALLING THE PATIENTS INSURANCE COMPANY TODAY. I FINALLY GOT CONNECTED WITH A DRUG ROOM CLERK NAMED VIKY AT [facility] [phone] WHO SPOKE WITH HER DRUG ROOM CLERK IN REGARDS TO THE PATIENTS NEEDS. I HAVE BEEN TOLD TO HAVE A PHARMACY THAT CARRIES THE MEDICATION RUN IT THROUGH AND ONCE IT HAS BEEN DENIED, SHE WILL OVERRIDE IT IN THE SYSTEM AND THEY WILL PAY 1/3 THE COST OF THE MEDICATION. SHE STATED THAT THE PATIENT IS STILL GOING TO NEED THE MANUFACTURERS DISCOUNT CARD TO FINANCIALLY ASSIST WITH IT. SHE STATED THAT HER DRUG ROOM CLERK IS WATCHING FOR THE DENIAL AND WILL OVERRIDE IT SOON IT IS SEEN, BUT I CAN CALL BACK AND LET HER KNOW ONCE THE INITIAL DENIAL OF THE MEDICATION HAPPENED SO THAT THIS COULD BE DONE. SHE STATED THAT HER DRUG ROOM CLERK WILL LEAVE AT 1400 TO DAY AND THEREFORE WOULD NEED TO BE DONE BY THEN. I HAVE LEFT A MESSAGE FOR ARLENE, WITH DR KAYE IN REGARDS TO THIS. I WENT IN AND EXPLAINED IT TO THE PATIENT WHO IS THANKFUL THAT WE HAVE FIGURED IT OUT AND IS WILLING TO GO TO WHATEVER PHARMACY WE CAN FIND THE MEDICATION AT AND SAID THAT HE HAS NO PROBLEM PAYING THE $50.00 THAT WAS TOLD TO ME BY ARLENE YESTERDAY. I WILL WORK ON FINDING A PHARMACY THAT CARRIES THE MEDICATION. Patient Name: NEENA COLLINS Page [phone] at 1036 All edits/amendments must be made on the electronic document DICTATION DATE: 04/06/18 1035 HAND ZIPPER TRIMMER: KAMLAA 04/06/18 1035 RPT#: [id number] DC DATE: STATUS: ADM IN [facility] [address] [place] [address] END OF REPORT
--- NOTE | ~2018-04-05 | MORECARE ---
CASE MANAGEMENT DISCHARGE SUMMARY PATIENT: NEENA COLLINS UNIT: [id number] ADM DATE: 04/05/18 AGE: 42 : 71 SEX: M ROOM/BED: D.2868 AUTHOR: EARL,DOC PHYSICIAN: REFERRING PHYSICIAN: BRENDEN BOYER DO DATE OF SERVICE: 04/06/18 Discharge Plan Patient Name: NEENA COLLINS Facility: [facility]:[place] : 1975 Planned Disposition: Home Anticipated Discharge Date: 04/06/18 Discharge Date: 04/06/2018 Expected LOS: 1 Initial Reviewer: [email or web address] Initial Review Date: 04/05/2018 Generated: 04/06/18 6:05 pm Comments DCP- Discharge Planning Updated by [id number]: Nika Cohen on 04/06/18 11:[address] HAVE RECEIVED ORDER TO CALL IN THE PRESCRIPTION FOR THE PATIENT. IT WAS CALLED INTO TO [facility] [address]. I HAVE RELAYED THE INSURANCE INFORMATION FROM HIS PRESCRIPTION CARD. EVERYTHING HAS BEEN EXPLAINED TO THE PATIENT, AND THE PATIENT HAS STATED HIS GRATITUDE. I HAVE NOT BEEN ABLE TO PRINT THE PRESCRIPTION CARD MYSELF SECONDARY TO IT SAYING I'M ALREADY REGISTERED AND I DON'T KNOW THE USER NAME OR PASSWORD, BUT I WILL WORK ON IT. Appended by Nika Cohen on 04/06/2018 12:57 FAMILY DENTIST: FOR RECORD: RX CARD IS WITH [employer]: ID# [id number], GROUP # [id number], BIN# [id number]. DCP- Discharge Planning Updated by [email or web address]: Nika Cohen on 04/06/18 11:[address] I HAVE BEEN ABLE TO FINALLY PRINT A DISCOUNT CARD FROM THE [employer]. THIS HAS BEEN GIVEN TO THE PATIENT AND A COPY WAS PLACED IN THE CHART. DCP- Discharge Planning Updated by [id number]: Nika Cohen on 04/06/18 9:[address] I SPOKE WITH DR KAYE ABOUT SEEING IF THE PATIENTS INSURANCE WOULD COVER DIFCID (FIDAXOMICIN) 200 MG PO BID X 10 DAYS. AND WHAT THE PATIENT COST WOULD BE. I STARTED BY CALLING [facility] AT [phone]. I INITIALLY SPOKE WITH [employer] WHO TRANSFERRED ME TO [place] BECAUSE SHE WAS NOT SURE WHAT THE ANSER WAS. JOSÉ MANUEL STATED THAT THE PATIENTS PLAN REQUIRES HIM TO GET HIS MEDICATION AT [facility], AND THAT THE ANTIBIOTIC WAS NOT ON THEIR FORMULARY AND DUE TO THE COST THEY WERE SURE THEY COULD NOT OBTAIN IT FROM AN OUTSIDE COMPANY. I WAS PLACED ON HOLD AND WHEN SHE CAME BACK, SHE STATED I NEEDED TO CALL [phone] TO SEE ABOUT OUTSIDE AUTH. I CALLED [phone] AND SPOKE WITH DUC. AFTER EXPLAINING THE NATURE OF THE CALL WITH HER, SHE PLACED ME ON HOLD AND CAME BACK TO EXPLAIN THAT THE PATIENT IS A LIMITED ACCESS PLAN PATIENT AND I WOULD NEED TO CALL LIMITED ACCESS AT [phone] SINCE SHE CANNOT PULL LIMITED ACCESS PATIENTS UP IN THE COMPUTER. CALL PLACED TO [phone], SPOKE WTIH MRS ARYAN SCHOFIELD, AND SHE IS FOR ADJUSTMENTS AND I WOULD NEED TO CALL AND SPEAK TO SOMEONE AT [phone]. I PLACED A CALL TO THIS NUMBER AND SPOKE WITH FATOUMATA. AFTER EXPLAINING EVERYTHING TO HER, SHE EXPLAINED THAT SHE IS JUST THE PRICING DEPARTMENT AND I WOULD NEED TO SPEAK TO SOMEONE AT THE [facility]. SHE GAVE ME THE NUMBER OF [phone]. I CALLED THIS NUMBER AND SPOKE WITH BUSHRA. SHE EXPLAINED THAT SINCE WE ARE ASKING ABOUT A MEDICATION THAT [facility] NOT [facility] IN [facility], I WOULD HAVE TO TALK TO SOMEONE AT THE [facility], AND GAVE ME THE NUMBER [phone]. I CALLED AND SPOKE WITH WILMER. AFTER EXPLAINING EVERYTHING AGAIN, HE STATED THE MEDICATION WAS NOT IN THEIR SYSTEM AND IF HE CANNOT PULL THE MEDICATION UP IN THIER SYSTEM, THEY WILL NOT SUPPLY IT. HE ENCOURAGED ME TO LOOK FOR A SNACK FOODS MIXER OPERATOR THAT SUPPLIES THE MEDICATION AND SEE ABOUT GETTING A DISCOUNT OR ASSISTANCE PROGRAM APPLICATION FROM THEM. I THANKED HIM FOR HIS TIME. @5596 I PLACED A PAGED TO DR CHERRY AT [phone] TO EXPLAIN WHAT WAS DISCOVERED. @2815 CALL WAS TRANSFERRED TO MY PHONE FROM ARLENE AT DR CHERRY'S OFFICE. EXPLAINED THE FINDINGS TO HER AND SHE STATED THAT SHE MAY HAVE SOMEONE THAT CAN HELP SUPPLY THE MEDICATION AND HAS REQUESTED THAT I CALL HER BEFORE I LEAVE. I HAVE MADE MYSELF A REMINDER NOTE, AND WILL CALL HER IN A BIT. DCP- Discharge Planning Updated by [id number]: Nika Cohen on 04/06/18 9:[address] I CALLED [facility] AT [phone] AND THEY DO NOT CARRY THE MEDICATION. I THEN CALLED YASHIRA AT [phone] AND SPOKE WITH ARSH. SHE HAD TO PLACE ME ON HOLD AND TALK TO THE PHARMACIST SECONDARY TO THE MESSAGE IN THE SYSTEM WHEN SHE LOOKED UP THE MEDICATION. SHE CAME BACK AND SAID THAT THEY HAD 10 OF THE 200 MG TABS, SHE ASKED HOW MANY TABS THE PATIENT WOULD NEED. EXPLAINED 20. SHE STATED THAT IF THEY HAVE THE ORDER IN BY 1330 IT CAN BE HERE ON MONDAY. SHE SAID THEY COULD DISPENSE THE 10 TODAY AND THE OTHER 10 WHEN IT COMES IN. I EXPLAINED THE INSURANCE SITUTATION TO HER. SHE STATED THAT IT WOULD BE NO PROBLEM, I GAVE HER THE [facility] NUMBER AND NAME OF PERSON I TALKED TO. I EXPLAINED THAT I NEEDED TO GET AHOLD OF DR CHERRY TO ACTUALLY RECEIVE THE ORDER TO CALL THE MEDICATION IN, THAT RIGHT NOW I JUST HAVE THE REQUEST TO FIND A PLACE THAT CARRIES THE MED AND MAKE SURE THE INSURANCE WOULD COVER AND THE PATIENT COULD AFFORD THE COST. SHE SAID OK. I HAVE LEFT A MESSAGE FOR ARLENE AT DR CHERRY'S OFFICE AND WILL WAIT FOR RETURN CALL. DCP- Discharge Planning Updated by [id number]: Nika Noel on 04/06/18 9:[address] I STARTED CALLING THE PATIENTS INSURANCE COMPANY TODAY. I FINALLY GOT CONNECTED WITH A DIRECTOR OF OCCUPATIONAL THERAPY NAMED VIKY AT [facility] [phone] WHO SPOKE WITH HER DIRECTOR OF OCCUPATIONAL THERAPY IN REGARDS TO THE PATIENTS NEEDS. I HAVE BEEN TOLD TO HAVE A PHARMACY THAT CARRIES THE MEDICATION RUN IT THROUGH AND ONCE IT HAS BEEN DENIED, SHE WILL OVERRIDE IT IN THE SYSTEM AND THEY WILL PAY 1/3 THE COST OF THE MEDICATION. SHE STATED THAT THE PATIENT IS STILL GOING TO NEED THE [employer] DISCOUNT CARD TO FINANCIALLY ASSIST WITH IT. SHE STATED THAT HER DIRECTOR OF OCCUPATIONAL THERAPY IS WATCHING FOR THE DENIAL AND WILL OVERRIDE IT SOON IT IS SEEN, BUT I CAN CALL BACK AND LET HER KNOW ONCE THE INITIAL DENIAL OF THE MEDICATION HAPPENED SO THAT THIS COULD BE DONE. SHE STATED THAT HER DIRECTOR OF OCCUPATIONAL THERAPY WILL LEAVE AT 1400 TO DAY AND THEREFORE WOULD NEED TO BE DONE BY THEN. I HAVE LEFT A MESSAGE FOR ARLENE, WITH DR KAYE IN REGARDS TO THIS. I WENT IN AND EXPLAINED IT TO THE PATIENT WHO IS THANKFUL THAT WE HAVE FIGURED IT OUT AND IS WILLING TO GO TO WHATEVER PHARMACY WE CAN FIND THE MEDICATION AT AND SAID THAT HE HAS NO PROBLEM PAYING THE $50.00 THAT WAS TOLD TO ME BY ARLENE YESTERDAY. I WILL WORK ON FINDING A PHARMACY THAT CARRIES THE MEDICATION. Last DP export: 04/06/18 12:00 Patient Name: NEENA COLLINS Page [phone] at 1705 All edits/amendments must be made on the electronic document DICTATION DATE: 04/06/181703 CUSTOMER SERVICE RECEPTIONIST: KAMALA 04/06/181703 RPT#: [id number] DC DATE:04/06/18 STATUS: DIS IN [facility] [address] [place] [address] END OF REPORT
[~2018-04-05 04:47] MED LIST changes: -DIFICID 200 MG PO; -KENALOG 0.1 % 115 GM TOPICAL; -MEDROL DOSE PACK4 MG PO
[2018-04-05 05:27] LABS: BASOPHILS 0.4 % (0-2); EOSINOPHILS 3.1 % (0-7); HEMATOCRIT 39.4 % (42.0-54.0); HEMOGLOBIN 13.8 g/dL (13.5-17.5); IMMATURE GRANULOCYTES 0.7 % (0-5); LYMPHOCYTES 17.8 % (15-50); MCH 30.7 pg (26.0-34.0); MCV 87.8 fL (80.0-100.0); MONOCYTES 7.6 % (2-11); NEUTROPHILS 70.4 % (40-80); PLATELET COUNT 380 10x3/uL (130-400); RBC 4.49 10x6/uL (4.20-6.10); RDW 13.2 % (11.5-14.5); WBC 13.7 10x3/uL (4.8-10.8)
[2018-04-05 05:30] LABS: ALBUMIN 2.7 g/dL (3.4-5.0); ALKALINE PHOSPHATASE 128 U/L (46-116); ALT (SGPT) 23 U/L (10-68); CALC OSMOLALITY 266 mosm/kg (275-300); CALCIUM 8.7 mg/dL (8.5-10.1); CHLORIDE - SERUM 96 mmol/L (98-107); GLUCOSE 129 mg/dL (74-106); POTASSIUM - SERUM 3.8 mmol/L (3.5-5.1); PROTEIN - SERUM 7.3 g/dL (6.4-8.2); SODIUM 131 mmol/L (136-145); UREA NITROGEN 18 mg/dL (7-18); eGFR NON AFRICAN AMERICAN 86 mL/min (90-120)
[2018-04-05 05:33] LABS: AMYLASE - SERUM 20 U/L (25-115); LIPASE 76 U/L (73-393)
[2018-04-05 05:39] LABS: TROPONIN-I < 0.017 ng/mL (0.000-0.060)
[2018-04-05 13:49] VITALS: BP 122/84; BMI 29.4
[2018-04-05 18:39] VITALS: Ht 182.9 cm; Wt 98.1 kg
[2018-04-05 21:57] VITALS: BP 115/70
[2018-04-06 01:04] VITALS: BP 112/53
[2018-04-06 03:10] LABS: APPEARANCE CLEAR (CLEAR); BILIRUBIN NEGATIVE (NEGATIVE); COLOR YELLOW (YELLOW); GLUCOSE 100 mg/dL (NEGATIVE); KETONE SMALL mg/dL (NEGATIVE); NITRITE NEGATIVE (NEGATIVE); PROTEIN NEGATIVE (NEGATIVE); SPECIFIC GRAVITY 1.015 (1.005-1.020); UROBILINOGEN NORMAL (NORMAL)
[2018-04-06 04:10] LABS: BASOPHILS 0.2 % (0-2); EOSINOPHILS 0.2 % (0-7); HEMATOCRIT 37.4 % (42.0-54.0); HEMOGLOBIN 12.7 g/dL (13.5-17.5); IMMATURE GRANULOCYTES 0.5 % (0-5); LYMPHOCYTES 13.3 % (15-50); MCH 30.2 pg (26.0-34.0); MCV 88.8 fL (80.0-100.0); MEAN PLATELET VOLUME 9.6 fL (7.4-10.4); MONOCYTES 6.7 % (2-11); NEUTROPHILS 79.1 % (40-80); PLATELET COUNT 417 10x3/uL (130-400); RBC 4.21 10x6/uL (4.20-6.10); WBC 16.9 10x3/uL (4.8-10.8)
[2018-04-06 04:40] LABS: ALBUMIN 2.4 g/dL (3.4-5.0); ALKALINE PHOSPHATASE 101 U/L (46-116); ALT (SGPT) 17 U/L (10-68); BILIRUBIN - TOTAL 0.31 mg/dL (0.2-1.3); CALC OSMOLALITY 272 mosm/kg (275-300); CALCIUM 8.4 mg/dL (8.5-10.1); CARBON DIOXIDE 22.6 mmol/L (21.0-32.0); CHLORIDE - SERUM 103 mmol/L (98-107); CREATININE - SERUM 0.9 mg/dL (0.6-1.3); GLUCOSE 156 mg/dL (74-106); POTASSIUM - SERUM 4.3 mmol/L (3.5-5.1); PROTEIN - SERUM 6.4 g/dL (6.4-8.2); SODIUM 134 mmol/L (136-145); UREA NITROGEN 19 mg/dL (7-18); eGFR NON AFRICAN AMERICAN > 90 mL/min (90-120)
[2018-04-06 05:40] VITALS: BP 136/82
[2018-04-06 09:01] VITALS: BP 126/41
[2018-04-06] MEDS ORDERED: KENALOG 0.1 % 115 GM TOPICAL (09:29)
[2018-04-06] MEDS ORDERED: FLORASTOR250 MG PO (09:29)
[2018-04-06] MEDS ORDERED: MEDROL DOSE PACK4 MG PO (09:29)
[2018-04-06 12:18] VITALS: BP 140/86
[2018-04-06] MEDS ORDERED: DIFICID 200 MG PO (13:28)
== END 2018-04-06 14:10 | disposition home or self-care (01) ==
LOC: D.ER 04:47 → D.EDHOLD 05:46 → D.M2 05:46 → D.EDHOLD 05:46 → OBSVTIME 05:46 → D.M2 11:52 → D.SDCHOLD 04-06 07:45 → D.M2 04-06 07:46 → D.SDCHOLD 04-06 08:05 → D.M2 04-06 08:07
PROVIDERS: Family Medicine
DX: L29.8 Other pruritus (principal); T36.8X5A Adverse effect of other systemic antibiotics, initial encounter

== ENCOUNTER 2018-05-05 09:15 | Inpatient (IN) | payer BC ==
[~2018-05-05] VITALS: Ht 182.9 cm; Wt 94.5 kg
--- NOTE | ~2018-05-05 | MORECARE ---
CASE MANAGEMENT DISCHARGE SUMMARY PATIENT: NEENA COLLINS UNIT: [id number] ADM DATE: 05/05/18 AGE: 42 : 71 SEX: M ROOM/BED: D.2202 AUTHOR: JAIME ELLIOTT PHYSICIAN: REFERRING PHYSICIAN: BRENDEN MARSHALL MD DATE OF SERVICE: 05/08/18 Discharge Plan Patient Name: NEENA COLLINS [facility] [facility] 1975 Planned Disposition: Home Anticipated Discharge Date: Discharge Date: Expected LOS: Initial Reviewer: [email or web address] Initial Review Date: 05/05/2018 Generated: 05/08/18 1:44 pm DCPIA - Discharge Planning Initial Assessment Updated by [email or web address]: Екатерина Solomon on 05/08/18 12:42 pm * Is the patient Alert and Oriented? Yes * How many steps to enter\exit or inside your home? * PCP Erika * Pharmacy [facility] * Preadmission Environment Home with Family * ADLs Independent * Equipment None * List name and contact numbers for known caregivers / representatives who currently or will assist patient after discharge: lissette () [phone] * Verbal permission to speak to the caregivers and representatives has been obtained from the patient. N/A * Community resources currently utilized None * Additional services required to return to the preadmission environment? No * Can the patient safely return to the preadmission environment? Yes * Has this patient been hospitalized within the prior 30 days at any hospital? No Patient Name: NEENA COLLINS Page [phone] at 1244 All edits/amendments must be made on the electronic document DICTATION DATE: 05/08/18 1243 DRUM DYEING MACHINE OPERATOR: KAMALA 05/08/18 1243 RPT#: [id number] DC DATE: STATUS: ADM IN [facility] [address] [place] [address] END OF REPORT
--- NOTE | ~2018-05-05 | MORECARE ---
CASE MANAGEMENT DISCHARGE SUMMARY PATIENT: NEENA COLLINS VICKIE UNIT: [id number] ADM DATE: 05/05/18 AGE: 42 : [birth year] SEX: M ROOM/BED: D.2202 AUTHOR: EARL,DOC PHYSICIAN: REFERRING PHYSICIAN: BRENDEN MARSHALL MD DATE OF SERVICE: 05/09/18 Discharge Plan Patient Name: NEENA COLLINS Facility: [facility]:[place] : 1975 Planned Disposition: Home Anticipated Discharge Date: Discharge Date: Expected LOS: Initial Reviewer: [id number] Initial Review Date: 05/05/2018 Generated: 05/09/18 3:26 pm Comments DCP- Discharge Planning Updated by [email or web address]: Екатерина Solomon on 05/09/18 1:[address] PATIENT TO BE DISCHARGED TODAY, MOM AT BEDSIDE. DENIES ANY HOME HEALTH NEEDS. CM TO FOLLOW AND ASSIST WITH DC PLANNING DCP- Discharge Planning Updated by [email or web address]: Екатерина Solomon on 05/08/18 11:[address] Patient Name: NEENA COLLINS Admission Status: ER Accout number: [id number] Admission Date: 05-05-2018 : 1975 Admission Diagnosis:PERITONEAL ABSCESS Attending: BRENDEN MARSHALL Current LOS: 3 Anticipated DC Date: Planned Disposition: Home Primary Insurance: [employer] TRUE BLUE PPO Discharge Planning Comments: CM met with patient to assess discharge planning needs. Patient lives with his and children and plans to return there at discharge. He stated that his mom will be the one to drive him home. He is independent with his care and there is one step to his home. He states his home is safe. He is unsure if he will need home health or not due to his drains. CM will continue to follow and assist with DC planning as needed Aboriginal Community Council Member: Екатерина Solomon DCPIA - Discharge Planning Initial Assessment Updated by [email or web address]: Екатерина Solomon on 05/08/18 12:42 pm * Is the patient Alert and Oriented? Yes * How many steps to enter\exit or inside your home? * PCP [place] * Pharmacy [facility] * Preadmission Environment Home with Family * ADLs Independent * Equipment None * List name and contact numbers for known caregivers / representatives who currently or will assist patient after discharge: lissette () [phone] * Verbal permission to speak to the caregivers and representatives has been obtained from the patient. N/A * Community resources currently utilized None * Additional services required to return to the preadmission environment? No * Can the patient safely return to the preadmission environment? Yes * Has this patient been hospitalized within the prior 30 days at any hospital? No Last DP export: 05/08/18 11:53 Patient Name: NEENA COLLINS Page [id number] at 1426 All edits/amendments must be made on the electronic document DICTATION DATE: 05/09/181424 WOOD SASH AND FRAME CARPENTER: KAMALA 05/09/181424 RPT#: [id number] DC DATE: STATUS: ADM IN [address] [place] [address] END OF REPORT
--- NOTE | ~2018-05-05 | CN ---
PATIENT NAME:NEENA COLLINS MEDICAL RECORD: [id number] : [birth year] LOCATION:D.MS [id number] ADMIT DATE: 05/05/18 ACCOUNT: [id number] CONSULTING PHYSICIAN: BRENDEN BOYER DO REFERRING PHYSICIAN: BRENDEN MARSHALL MD DATE OF CONSULTATION: 05/09/2018 HISTORY OF PRESENT ILLNESS: A 42-year-old male presented to the Emergency Room after the swelling and pain at his incision site from surgery on 03/21/2018 where he had a sigmoid colon resection and had subjective fever and chills, abdominal pain. PAST MEDICAL HISTORY: Significant for diverticulitis with perforation, subsequent resection, also a history of C. diff and GERD. CARDIOVASCULAR HISTORY: Significant for pacemaker. SOCIAL HISTORY: Denies tobacco. Denies alcohol. REVIEW OF SYSTEMS: CONSTITUTIONAL: No acute change in weight. Decreased appetite with acute hospitalization. HEENT: No cephalalgia, visual changes, tinnitus, epistaxis, or dysphagia. CARDIOVASCULAR: History as above. Denies chest pain, denies palpitations. PULMONARY: Denies hemoptysis, denies night sweats. GASTROINTESTINAL: Denies hematemesis, hematochezia or melena. Admits to abdominal pain. CT findings on admission showed abdominal abscess. The patient has undergone I&D with drain placement, remains afebrile. Cultures are pending. Empiric antibiotics have been started. GENITOURINARY: Denies dysuria. MUSCULOSKELETAL: No acute changes. ENDOCRINE: Denies polyuria, polydipsia, or polyphagia. PHYSICAL EXAMINATION: VITAL SIGNS: Temp 97.9, blood pressure 114/72, heart rate 62, respirations 18, O2 sats 98%. GENERAL: Alert and oriented, no present distress. HEENT: Normocephalic, atraumatic. Eyes: Pupils equally round and reactive to light and accommodation. Extraocular muscles intact. Conjunctivae not injected. Ears: Canals patent, TMs are intact. Nose: Nares patent without drainage. Throat: No erythema, no exudates. NECK: Supple. HEART: Regular rate and rhythm. LUNGS: Clear to auscultation bilaterally. Breathing is nonlabored. ABDOMEN: Soft. Drains in place. EXTREMITIES: Present times 4. NEUROLOGIC: Intact. SKIN: Warm and dry. No rash. LABORATORY DATA: CBC: White count 12,000, hemoglobin 10.6, hematocrit 32, platelets 315. With a report of diarrhea yesterday and history of Clostridium difficile, stool was obtained for C. diff and it was negative. CONSULT REPORT [id number] NEENA COLLINS Radiology report reviewed. ASSESSMENT AND PLAN: 1. Abdominal abscess, status post incision and drainage, drain in place. Cultures pending. Continue empiric antibiotics. Surgery following. 2. Postoperative anemia, likely dilutional component with fluids. We will monitor. 3. Gastroesophageal reflux disease. Continue medications. Supportive care. I appreciate this consult. We will follow accordingly. TRANSINT:[id number] Voice Confirmation ID: [id number] DOCUMENT ID: [id number] BRENDEN BOYER DO CC: [id number] DICTATION DATE: 05/09/18804 FEED MIXER HELPER: 05/09/18 1109 ADM IN [facility] [address] [place] [address]
--- NOTE | ~2018-05-05 | OP ---
PATIENT NAME: NEENA COLLINS MEDICAL RECORD: [id number] :[birth year] LOCATION:D.MS Glez2 ADMISSION DATE:05/05/18 SURGEON: BRENDEN MARSHALL MD DATE OF OPERATION: 05/06/2018 PREOPERATIVE DIAGNOSES: History of hand-assisted laparoscopic sigmoid colectomy with takedown of the splenic flexure, now with an intra-abdominal and subcutaneous abscess. POSTOPERATIVE DIAGNOSES: History of hand-assisted laparoscopic sigmoid colectomy with takedown of the splenic flexure, now with an intra-abdominal and subcutaneous abscess. PROCEDURE: Open drainage of intra-abdominal and subcutaneous abscesses. SURGEON: Brenden Marshall MD PHOTO TECHNOLOGIST: None. BLOOD LOSS: 25 cc of new blood loss. COMPLICATIONS: None. The risks, possible complications and alternatives to procedure were explained to the patient. He elects to proceed. The patient had his operation on . So, it has been about 6 weeks since the operation. That would be a very long time postoperatively to have an anastomotic breakdown. It also would be a long time after surgery to have an abdominal abscess. The patient had swelling of the abdomen that came on fairly suddenly. I think what happened is that he had an intra-abdominal abscess and then once this made out of the abdominal compartment it drained mainly into the subcutaneous compartment and caused a marked increase in swelling quickly. The patient has the urge to defecate, but cannot do so. They called me by phone and I asked him to go to the Emergency Room. In the Emergency Room, a CT scan revealed the abscesses. The patient was placed on intravenous antibiotics as well as IV narcotic analgesia. The risks, possible complications and alternatives to the procedure were explained to the patient. He elects to proceed. The discussion specifically included, but was not limited to, bleeding requiring an emergency reoperation, infection, ileostomy formation, colostomy formation. OPERATIVE COURSE: The patient was conveyed to the operating room electively on 05/06/2018. General anesthesia was induced by the anesthesia staff. The abdomen was sterilely prepped and draped. I incised through the patient's lower transverse incision. I encountered the subcutaneous abscess cavity. There was about a liter of pus. This was aspirated. Cultures were obtained. I could press on the abdomen and see the pus come from down in the peritoneal cavity and come up into this subcutaneous abscess cavity. I did little bit of blunt dissection with my finger down into the abdominal cavity. I did not tried to do very much for fear that I might cause an intestinal injury. I did not see anything that looked feculent. The pus did not smell feculent. I saw no food particles. OPERATIVE REPORT [id number] [facility] I irrigated with hydrogen peroxide. I placed 1-inch [place] drain down into the abdominal cavity and brought it out through the skin to the patient's left. I sutured the drain in place with a 2-0 nylon. Multiple interrupted horizontal mattress 2-0 nylons were used to close the skin and subcutaneous tissue elsewhere. A stomal appliance was applied over the drain. The patient was then extubated and conveyed to post-anesthesia care unit where he was in stable condition. We are going to obtain a Gastrografin small bowel follow-through to check for anastomotic patency. I will do this tomorrow. TRANSINT:[id number] Voice Confirmation ID: [id number] DOCUMENT ID: [id number] BRENDEN MARSHALL MD at 1522 CC: BRENDEN BOYER [id number] DICTATION DATE: 05/06/18 1633 HARVEST WORKER FIELD CROP: 05/06/18 2221 ADM IN [facility] [address] [place] [address]
--- NOTE | ~2018-05-05 | MORECARE ---
CASE MANAGEMENT DISCHARGE SUMMARY PATIENT: NEENA COLLINS UNIT: [id number] ADM DATE: 05/05/18 AGE: 42 : 71 SEX: M ROOM/BED: D.2202 AUTHOR: JAIME ELLIOTT PHYSICIAN: REFERRING PHYSICIAN: BRENDEN MARSHALL MD DATE OF SERVICE: 05/08/18 Discharge Plan Patient Name: NEENA COLLINS Facility: [facility]:[place] : 1975 Planned Disposition: Home Anticipated Discharge Date: Discharge Date: Expected LOS: Initial Reviewer: [email or web address] Initial Review Date: 05/05/2018 Generated: 05/08/18 1:53 pm Comments DCP- Discharge Planning Updated by [email or web address]: Екатерина Solomon on 05/08/18 11:[address] Patient Name: NEENA COLLINS Admission Status: ER Accout number: [id number] Admission Date: 05-05-2018 : 1975 Admission Diagnosis:PERITONEAL ABSCESS Attending: BRENDEN MARSHALL Current LOS: 3 Anticipated DC Date: Planned Disposition: Home Primary Insurance: [employer] TRUE BLUE PPO Discharge Planning Comments: CM met with patient to assess discharge planning needs. Patient lives with his and children and plans to return there at discharge. He stated that his mom will be the one to drive him home. He is independent with his care and there is one step to his home. He states his home is safe. He is unsure if he will need home health or not due to his drains. CM will continue to follow and assist with DC planning as needed Donor Services Specialist: Екатерина Solomon DCPIA - Discharge Planning Initial Assessment Updated by [email or web address]: Екатерина Solomon on 05/08/18 12:42 pm * Is the patient Alert and Oriented? Yes * How many steps to enter\exit or inside your home? * PCP [place] * Pharmacy [facility] * Preadmission Environment Home with Family * ADLs Independent * Equipment None * List name and contact numbers for known caregivers / representatives who currently or will assist patient after discharge: lissette () [phone] * Verbal permission to speak to the caregivers and representatives has been obtained from the patient. N/A * Community resources currently utilized None * Additional services required to return to the preadmission environment? No * Can the patient safely return to the preadmission environment? Yes * Has this patient been hospitalized within the prior 30 days at any hospital? No Last DP export: 05/08/18 11:44 Patient Name: NEENA COLLINS Page 69450 at 1253 All edits/amendments must be made on the electronic document DICTATION DATE: 05/08/18 125 LIGHTNING PROTECTION INSTALLER: KAMALA 05/08/18 125 RPT#: [id number] DC DATE: STATUS: ADM IN [facility] [address] [place] [address] END OF REPORT
[~2018-05-05 09:15] MED LIST changes: +DIFICID 200 MG PO; +KENALOG 0.1 % 115 GM TOPICAL; +MEDROL DOSE PACK4 MG PO
[2018-05-05 09:33] LABS: BASOPHILS 0.2 % (0-2); EOSINOPHILS 0.4 % (0-7); HEMATOCRIT 40.4 % (42.0-54.0); HEMOGLOBIN 13.7 g/dL (13.5-17.5); IMMATURE GRANULOCYTES 0.2 % (0-5); LYMPHOCYTES 20.2 % (15-50); MCH 29.9 pg (26.0-34.0); MCHC 33.9 g/dL (31.0-37.0); MCV 88.2 fL (80.0-100.0); MEAN PLATELET VOLUME 9.7 fL (7.4-10.4); MONOCYTES 9.1 % (2-11); NEUTROPHILS 69.9 % (40-80); RBC 4.58 10x6/uL (4.20-6.10); RDW 13.2 % (11.5-14.5); WBC 13.8 10x3/uL (4.8-10.8)
[2018-05-05 09:38] LABS: PLATELET COUNT 305 10x3/uL (130-400)
[2018-05-05 09:54] LABS: ALBUMIN 3.2 g/dL (3.4-5.0); ALKALINE PHOSPHATASE 140 U/L (46-116); ALT (SGPT) 24 U/L (10-68); BILIRUBIN - TOTAL 0.59 mg/dL (0.2-1.3); CALC OSMOLALITY 273 mosm/kg (275-300); CALCIUM 9.4 mg/dL (8.5-10.1); CARBON DIOXIDE 24.7 mmol/L (21.0-32.0); CHLORIDE - SERUM 98 mmol/L (98-107); GLUCOSE 138 mg/dL (74-106); POTASSIUM - SERUM 3.7 mmol/L (3.5-5.1); PROTEIN - SERUM 8.1 g/dL (6.4-8.2); SODIUM 136 mmol/L (136-145); UREA NITROGEN 12 mg/dL (7-18); eGFR NON AFRICAN AMERICAN 86 mL/min (90-120)
[2018-05-05 12:01] VITALS: BP 123/73
[2018-05-05 14:34] VITALS: Ht 182.9 cm; Wt 94.5 kg
[2018-05-05 16:44] VITALS: BP 112/68
[2018-05-05 20:00] VITALS: BP 123/71
[2018-05-06] VITALS: BP 105/65
[2018-05-06 04:00] VITALS: BP 103/74
[2018-05-06 06:12] LABS: BASOPHILS 0.2 % (0-2); EOSINOPHILS 0.1 % (0-7); HEMATOCRIT 38.3 % (42.0-54.0); HEMOGLOBIN 12.9 g/dL (13.5-17.5); IMMATURE GRANULOCYTES 0.4 % (0-5); LYMPHOCYTES 10.9 % (15-50); MCH 29.4 pg (26.0-34.0); MCHC 33.7 g/dL (31.0-37.0); MCV 87.2 fL (80.0-100.0); MEAN PLATELET VOLUME 9.8 fL (7.4-10.4); MONOCYTES 9.5 % (2-11); NEUTROPHILS 78.9 % (40-80); PLATELET COUNT 285 10x3/uL (130-400); RBC 4.39 10x6/uL (4.20-6.10); RDW 13.4 % (11.5-14.5); WBC 16.2 10x3/uL (4.8-10.8)
[2018-05-06 06:34] LABS: CALC OSMOLALITY 265 mosm/kg (275-300); CALCIUM 8.6 mg/dL (8.5-10.1); CARBON DIOXIDE 22.5 mmol/L (21.0-32.0); CHLORIDE - SERUM 96 mmol/L (98-107); CREATININE - SERUM 1.1 mg/dL (0.6-1.3); GLUCOSE 169 mg/dL (74-106); POTASSIUM - SERUM 3.8 mmol/L (3.5-5.1); SODIUM 131 mmol/L (136-145); UREA NITROGEN 11 mg/dL (7-18); eGFR NON AFRICAN AMERICAN 77 mL/min (90-120)
[2018-05-06 09:09] VITALS: BP 119/73
[2018-05-06 12:50] VITALS: BP 117/72
[2018-05-06 20:00] VITALS: BP 117/77
[2018-05-06 23:44] VITALS: BP 99/64
[2018-05-07 04:00] VITALS: BP 106/63
[2018-05-07 08:42] VITALS: BP 97/63
[2018-05-07 16:27] VITALS: BP 112/65
[2018-05-07 20:00] VITALS: BP 99/57
[2018-05-08 05:00] VITALS: BP 114/63
[2018-05-08 08:21] VITALS: BP 101/64
[2018-05-08 12:28] VITALS: BP 111/69
[2018-05-08 16:09] LABS: BASOPHILS 0.2 % (0-2); EOSINOPHILS 1.5 % (0-7); HEMOGLOBIN 10.6 g/dL (13.5-17.5); IMMATURE GRANULOCYTES 0.6 % (0-5); LYMPHOCYTES 25.5 % (15-50); MCH 29.2 pg (26.0-34.0); MCHC 33.1 g/dL (31.0-37.0); MCV 88.2 fL (80.0-100.0); MEAN PLATELET VOLUME 9.8 fL (7.4-10.4); MONOCYTES 6.9 % (2-11); NEUTROPHILS 65.3 % (40-80); PLATELET COUNT 315 10x3/uL (130-400); RBC 3.63 10x6/uL (4.20-6.10); RDW 13.2 % (11.5-14.5)
[2018-05-08 16:50] VITALS: BP 93/54
[2018-05-08 20:00] VITALS: BP 98/56
[2018-05-09] VITALS: BP 110/64
[2018-05-09 04:00] VITALS: BP 114/72
[2018-05-09 08:34] VITALS: BP 112/66
[2018-05-09] MEDS ORDERED: FLORAJEN3 CAPS460 MG PO (11:38)
[2018-05-09] MEDS ORDERED: HYDROCODON-ACE1 EAC7 PO (11:39)
== END 2018-05-09 14:30 | disposition home or self-care (01) | DRG 856 ==
LOC: D.ER 09:15 → D.MS 13:25
PROVIDERS: Family Medicine; Surgery
PROC: 0W9G0ZZ Drainage of Peritoneal Cavity, Open Approach (ICD-10-PCS; 2018-05-06)
PROC: 0W9F0ZZ Drainage of Abdominal Wall, Open Approach (ICD-10-PCS; principal; 2018-05-06 15:00)
DX: T81.41XA Infection following a procedure, superficial incisional surgical site, initial encounter (principal); K65.1 Peritoneal abscess; L02.211 Cutaneous abscess of abdominal wall

== ENCOUNTER 2018-05-13 09:56 | Emergency (ER) | payer BC ==
[~2018-05-13] VITALS: Ht 182.9 cm; Wt 93.6 kg
[~2018-05-13 09:56] MED LIST changes: +FLORAJEN3 CAPS460 MG PO
[2018-05-13 10:01] VITALS: Ht 182.9 cm; Wt 93.6 kg
[2018-05-13 12:50] VITALS: BP 122/84
[2018-05-13 13:36] LABS: BASOPHILS 0.2 % (0-2); EOSINOPHILS 1.8 % (0-7); HEMATOCRIT 37.3 % (42.0-54.0); HEMOGLOBIN 12.8 g/dL (13.5-17.5); IMMATURE GRANULOCYTES 1.2 % (0-5); LYMPHOCYTES 22.4 % (15-50); MCH 29.4 pg (26.0-34.0); MCHC 34.3 g/dL (31.0-37.0); MCV 85.6 fL (80.0-100.0); MEAN PLATELET VOLUME 9.7 fL (7.4-10.4); MONOCYTES 7.2 % (2-11); NEUTROPHILS 67.2 % (40-80); PLATELET COUNT 334 10x3/uL (130-400); RBC 4.36 10x6/uL (4.20-6.10); RDW 13.3 % (11.5-14.5); WBC 13.7 10x3/uL (4.8-10.8)
== END 2018-05-13 13:28 | disposition home or self-care (01) ==
LOC: D.ER 09:56
PROVIDERS: Family Medicine
DX: L76.82 Other postprocedural complications of skin and subcutaneous tissue (principal)

== ENCOUNTER → 2020-11-17 08:55 | Outpatient (CLI) | payer BC ==
[2018-05-13 10:01] VITALS: BMI 28.0
[2020-11-17 10:11] LABS: THYROID STIMULATING HORMONE 1.31 uIU/mL (0.36-3.74)
== END | disposition home or self-care (01) ==
LOC: D.LABREF 08:55
PROVIDERS: ATTEND Internal Medicine Cardiovascular Disease
DX: R53.83 Other fatigue (principal)